=== PATIENT | female | born 1945 | race Caucasian/White ===

== ENCOUNTER 2023-08-24 14:20 | Inpatient (IN) | payer MEDICARE, OTHER, SELFPAY ==
[2023-08-24] VITALS (29 sets, daily range): BP systolic 138–197; BP diastolic 60–137; PULSE 70–93; RESP 10–23; TEMP 36.4–36.6; O2SAT 94–100; BMI 20.5
--- NOTE | 2023-08-24 14:43 | XR_ITS ---
WS: [id number] Exam: XR chest 1V portable [id number] Date/Time of Exam: 08/24/2023 2:45 PM Reason For Exam: sob No priors. The lungs are clear and hyperinflated. Normal cardiomediastinal silhouette. No pleural effusions. A p ermanent cardiac pacer overlies the LEFT chest. Unremarkable bony structures. RIGHT apical pleural th ickening. XR/XR chest 1V portable [id number] IMPRESSION: 1. Pulmonary hyperinflation. No acute process.
--- NOTE | 2023-08-24 14:49 | ECG_ITS ---
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 Measurements Intervals [place] Rate: 78 P: 94 NE: 259 QRS: 34 QRSD: 73 T: 44 QT: 366 QTc: 418 Interpretive Statements ELECTRONIC ATRIAL PACEMAKER ABNORMAL RHYTHM ECG No previous ECG available for comparison Electronically Signed On 08-25-2023 23:41:26 CDT by Dimas Matute M.D. [email or web address] medical [email or web address] memorial [email or web address].Ropatec/store/NU/[id number]
--- NOTE | 2023-08-24 15:29 | PC.NURSE ---
Pt on bedside diagnostic cardiac sonographer
--- NOTE | 2023-08-24 15:30 | CTR_ITS ---
PROCEDURE INFORMATION: Exam: CT Head Without Contrast Exam date and time: 08/24/2023 4:08 PM Age: 78 years old Clinical indication: Pain; Dizziness and weakness, extremity; Bilateral; Headache; Patient HX: Patient says she fell 3 weeks ago with loc, PT has a HX of migraines; Additional info: ESPINOZA TECHNIQUE: Imaging protocol: Computed tomography of the head without contrast. Radiation optimization: All CT scans at this facility use at least one of these dose optimization techniques: automated exposure control; mA and/or kV adjustment per patient size (includes targeted exams where dose is matched to clinical indication); or iterative reconstruction. COMPARISON: No relevant prior studies available. RADIATION DOSE METRICS: Total DLP (mGy-cm): 974 FINDINGS: Brain: There is no acute intracranial hemorrhage, cerebral edema, or midline shift. A small area of chronic encephalomalacia is present in the left parietal lobe. Chronic microvascular ischemic changes are seen in the periventricular white matter. Age-related cerebral and cerebellar volume loss is present. Cerebral ventricles: Mild ex vacuo dilation of the lateral ventricles is noted. Paranasal sinuses: There is no acute sinusitis. Mastoid air cells: The mastoid air cells are clear. Orbital cavities: The included orbital structures are unremarkable. Bones: Unremarkable. No acute fracture. Soft tissues: Unremarkable. Vasculature: Atherosclerotic calcifications are seen involving the cavernous carotid arteries. CT/CT head wo con* [id number] IMPRESSION: 1. No acute intracranial abnormality. 2. Chronic findings as discussed above.
--- NOTE | 2023-08-24 15:31 | ED_ITS ---
HPI - General Adult 2 General: Chief complaint: General Medical Stated complaint: sob, weakness Time Seen by Provider: 08/24/23 15:22 Source: patient Mode of arrival: ambulatory Limitations: no limitations History of Present Illness: 6-year-old female is here with multiple complaints she states she is diagnosed a UTI a week ago she is on her last day of her antibiotics but states she has been having headaches along with some shortness of breath she states she is just felt not like herself had some intermittent confusion along with some intermittent difficulty walking. Patient is answering my questions appropriately family states she may have some early onset dementia. Patient was able to ambulate to the room without any difficulty Associated symptoms: Reports chest pain, confusion and headache(s); Deny nausea, rash or vomiting Review of Systems 2 Const: Denies: fever(s), chills, body aches or change in appetite Eyes: Denies: blurry vision or eye discomfort ENMT: Denies: throat pain or dental pain Card: Reports: chest pain GI: Denies: abdominal pain, nausea, vomiting or diarrhea Musc: Denies: neck pain or back pain Skin/Breast: Denies: rash Neuro: Reports: headache(s), weakness in extremities and confusion PFSH ED 2 PFSH: Medical History Depression HTN (hypertension) Hyperlipidemia Pacemaker Physical Exam 2 Const: COMMON NORMALS: patient oriented x3 HENMT: COMMON NORMALS: normocephalic and atraumatic HEAD & SCALP: n ormocephalic and atraumatic Eye: COMMON NORMALS: Equal, round and reactive pupils present and EOMs intact bilaterally PUPIL: Yes Equal, round and reactive pupils present Neck/C-Spine: COMMON NORMALS: full ROM and supple Chest: COMMONS NORMALS: normal inspection of the chest Resp: COMMON NORMALS: normal respiratory effort, No retractions, No use of accessory muscles and clear to auscultation bilaterally AUSCULTATION: clear to auscultation bilaterally Cardio: COMMON NORMALS: regular rate, regular rhythm and No murmurs present (Cardio) RATE: regular rate RHYTHM: regular rhythm Extremity: COMMON NORMALS: normal to inspection and full ROM Neuro: COMMON NORMALS: patient oriented x3, moves all extremities and no focal motor deficits CRANIAL NERVES: Yes CN normal except as noted SPEECH: s peech normal GAIT: Yes Normal gait present MOTOR EXAM: 5/5 motor strength present throughout Psych: COMMON NORMALS: mental status grossly normal, Normal thought process present and cooperative THOUGHT PROCESS: Normal thought process present Skin: COMMON NORMALS: no rashes or lesions noted and no wounds GENERAL SKIN EXAM: no rashes or lesions noted Course 2 Vital Signs: Vital signs: Vital Signs Temperature 97.5 F L 08/24/23 14:39 Pulse Rate 81 08/24/23 15:33 Respiratory Rate 16 08/24/23 15:33 Blood Pressure 197/92 08/24/23 15:33 Pulse Oximetry 100 08/24/23 15:33 Oxygen Delivery Me thod Room Air 08/24/23 15:33 MDM - General Adult Medical Decision Making Patient presents for some generalized weakness confusion she was found to be hyponatremic with sodium 119 this could be causing her symptoms head CT is normal no signs of a stroke spoke to the hospitalist will admit. Medical Records I reviewed the patient's medical records. Lab Data I reviewed the patient's lab results. 08/24/23 15:17 08/24/23 15:17 Radiology Impressions Chest X-Ray 08/24/23 14:43 IMPRESSION: 1. Pulmonary hyperinflation. No acute process. Head CT 08/24/23 15:30 IMPRESSION: 1. No acute intracranial abnormality. 2. Chronic findings as discussed above. Laboratory Results WBC 5.07 10^3/uL (3.29-11.43) 08/24/23 15:17 RBC 3.58 10^6/uL (3.85-5.65) L 08/24/23 15:17 Hgb 10.90 g/dL (11.27-16.99) L 08/24/23 15:17 Hct 31.1 % (36-47) L 08/24/23 15:17 MCV 86.9 fl (85-98) 08/24/23 15:17 MCH 30.4 pg (27-33) 08/24/23 15:17 MCHC 35.0 g/dL (30-55) 08/24/23 15:17 RDW 12.4 % (12.1-15.1) 08/24/23 15:17 Plt Count 254 10^3/cmm (157-399) 08/24/23 15:17 MPV 8.5 fL (7.4-10.4) 08/24/23 15:17 Neut % (Auto) 63.5 % 08/24/23 15:17 Lymph % (Auto) 25.0 % 08/24/23 15:17 [place] % (Auto) 10.3 % 08/24/23 15:17 Eos % (Auto) 0.6 % 08/24/23 15:17 Baso % (Auto) 0.2 % 08/24/23 15:17 Neut # (Auto) 3.22 10^3/uL (1.8-7.7) 08/24/23 15:17 Lymph # (Auto) 1.3 10^3/uL (0.8-4.8) 08/24/23 15:17 [place] # (Auto) 0.5 10^3/uL (0.2-0.9) 08/24/23 15:17 Eos # (Auto) 0.0 10^3/uL (0.0-0.8) 08/24/23 15:17 Baso # (Auto) 0.0 10^3/uL (0.0-0.1) 08/24/23 15:17 Nucleated RBC % (auto) 0 % 08/24/23 15:17 Nucleated RBCs # 0.0 /100WBC 08/24/23 15:17 PT 11.90 SECONDS (12.1-14.9) L 08/24/23 15:17 INR 0.85 (0.8-1.2) 08/24/23 15:17 Sodium 119 mmol/L (136-145) L* 08/24/23 15:17 Potassium 3.3 mmol/L (3.5-5.1) L 08/24/23 15:17 Chloride 78 mmol/L (98-107) L 08/24/23 15:17 Carbon Dioxide 26 mmol/L (22-29) 08/24/23 15:17 Anion Gap 18.3 (5-19) 08/24/23 15:17 BUN 10 mg/dL (8-23) 08/24/23 15:17 Creatinine 1.2 mg/dL (0.5-0.9) H 08/24/23 15:17 GFR Calculation Not Reportable 08/24/23 15:17 Glucose 91 mg/dL (65-115) 08/24/23 15:17 Calculated Osmolality 247 mOsm/kg (285-295) L 08/24/23 15:17 Calcium 9.7 mg/dL (8.5-10.5) 08/24/23 15:17 Magnesium 1.6 mg/dL (1.7-2.3) L 08/24/23 15:17 Total Bilirubin 0.7 mg/dL (0.15-1.2) 08/24/23 15:17 AST 35 U/L (0-32) H 08/24/23 15:17 ALT 26 U/L (0-33) 08/24/23 15:17 Alkaline Phosphatase 79 U/L (35-105) 08/24/23 15:17 Troponin T Baseline 15 ng/L (0-10) H 08/24/23 15:22 NT-Pro-B Natriuret Pep 1182 pg/mL (0-450) H 08/24/23 15:17 Total Protein 7.2 g/dL (6.6-8.7) 08/24/23 15:17 Albumin 4.2 g/dL (3.5-5.2) 08/24/23 15:17 Globulin 3.0 g/dL (1.3-4.6) 08/24/23 15:17 Urine Color Yellow (Yellow) 08/24/23 15:40 Urine Appearance Clear (CLEAR) 08/24/23 15:40 Urine pH 7 (5-7) 08/24/23 15:40 Ur Specific [place] 1.010 (1.005-1.030) 08/24/23 15:40 Urine Protein Neg (Negative) 08/24/23 15:40 Urine Glucose (UA) Norm (Normal) 08/24/23 15:40 Urine Ketones 1+ (Negative) H 08/24/23 15:40 Urine Blood Neg (Negative) 08/24/23 15:40 Urine Nitrate Negative (Negative) 08/24/23 15:40 Urine Bilirubin Neg (Negative) 08/24/23 15:40 Urine Urobilinogen Norm mg/dL (Negative) 08/24/23 15:40 Ur Leukocyte Esterase 1+ (Negative) H 08/24/23 15:40 Urine RBC 0-4 /hpf (0-2) H 08/24/23 15:40 Urine WBC 0-4 /hpf (0-5) H 08/24/23 15:40 Ur Squamous Epith Cells None /hpf (0-5) 08/24/23 15:40 Amorphous Sediment Not Reportable 08/24/23 15:40 Urine Bacteria Trace /hpf (NONE) 08/24/23 15:40 All radiology interpretation(s) finalized by discharge Discharge Plan Discharge Patient Disposition: Admitted As Inpatient Clinical Impression: Acute hyponatremia, Generalized weakness Condition: Stable Prescriptions: No Action aspirin [Adult Aspirin Regimen] 81 mg tablet,delayed release (DR/EC) 81 mg PO DAILY cholecalciferol (vitamin D3) 125 mcg (5,000 unit) capsule 125 mcg PO DAILY clonidine HCl 0.1 mg tablet 0.05 mg PO BID PRN hydrochlorothiazide 25 mg tablet 25 mg PO DAILY mecobalamin (vitamin B12) 1,000 mcg tablet,disintegrating 1,000 mcg sublingual DAILY Rx Instructions: place tablet under tongue and allow to dissolve for at least30 secs before swallowing hydralazine 10 mg tablet 10 mg PO TID lisinopril 40 mg tablet 40 mg PO DAILY fluoxetine [Prozac] 40 mg capsule 40 mg PO DAILY atorvastatin 40 mg tablet 40 mg PO DAILY ferrous sulfate 325 mg (65 mg iron) tablet 325 mg PO DAILY mupirocin 2 % ointment 1 applic topical BID Qty: 22 1RF Rx Instructions: Apply to affected area until healed fluorouracil 5 % cream 1 applic topical BID 28 Days Qty: 40 3RF Rx Instructions: to nose. will cause skin irritation. Coding Level of Care Code ED Supervisor [employer] for Ines Harris
[2023-08-24 15:34] LABS: Basophils % 0.2 %; Eosinophils % 0.6 %; Hematocrit 31.1 % (36-47); Lymphocytes # 1.3 10^3/uL (0.8-4.8); Mean Corpuscular Hemoglobin 30.4 pg (27-33); Mean Corpuscular Volume 86.9 fl (85-98); Mean Platelet Volume 8.5 fL (7.4-10.4); Monocytes # 0.5 10^3/uL (0.2-0.9); Monocytes % 10.3 %; Neutrophils # 3.22 10^3/uL (1.8-7.7); Neutrophils % 63.5 %; Nucleated Red Blood Cells % 0 %; Platelet Count 254 10^3/cmm (157-399); Red Blood Count 3.58 10^6/uL (3.85-5.65); Red Cell Distribution Width 12.4 % (12.1-15.1); White Blood Count 5.07 10^3/uL (3.29-11.43)
[2023-08-24] MEDS: meclizine 25 mg tablet 50 MG PO (15:44)
[2023-08-24 16:00] LABS: Troponin(5th) Baseline 15 ng/L (0-10)
[2023-08-24 16:04] LABS: Alanine Aminotransferase 26 U/L (0-33); Albumin Level 4.2 g/dL (3.5-5.2); Alkaline Phosphatase 79 U/L (35-105); Anion Gap 18.3 (5-19); Aspartate Amino Transferase 35 U/L (0-32); Blood Urea Nitrogen 10 mg/dL (8-23); Calcium 9.7 mg/dL (8.5-10.5); Carbon Dioxide 26 mmol/L (22-29); Chloride 78 mmol/L (98-107); Glucose 91 mg/dL (65-115); NT Pro B Type Natriuretic Pept 1182 pg/mL (0-450); Osmolality Calculated 247 mOsm/kg (285-295); Potassium 3.3 mmol/L (3.5-5.1); Total Bilirubin 0.7 mg/dL (0.15-1.2); Total Protein 7.2 g/dL (6.6-8.7)
[2023-08-24 16:05] LABS: INR 0.85 (0.8-1.2)
--- NOTE | 2023-08-24 16:06 | PC.NURSE ---
to CT scan
[2023-08-24 16:07] LABS: Sodium 119 mmol/L (136-145)
[2023-08-24 16:14] LABS: Add Urine Microscopic? YES; Bilirubin Urine Neg (Negative); Blood Urine Neg (Negative); Glucose Urine UA Norm (Normal); Ketones Urine 1+ (Negative); Leukocyte Esterase Urine 1+ (Negative); Nitrate Urine Negative (Negative); Protein Urine Neg (Negative); Urine Appearance Clear (CLEAR); Urine Color Yellow (Yellow); Urobilinogen Urine Norm (Negative); pH Urine 7 (5-7)
[2023-08-24 16:16] LABS: WBC Urine 0-4 /hpf (0-5)
[2023-08-24 16:17] LABS: Add Urine Culture? No; Bacteria Urine TRACE /hpf
[2023-08-24 16:20] LABS: RBC Urine 0-4 /hpf (0-2)
[2023-08-24] MEDS: sodium chloride 0.9% 1,000 ML 999 ML IV (16:28)
[2023-08-24 16:37] LABS: Magnesium 1.6 mg/dL (1.7-2.3)
[2023-08-24] MEDS: magnesium sulfate premix 1 GM/100 ML PIGGYBACK IV (16:55)
[2023-08-24] MEDS: hyDRALAzine 20 mg/mL INJ 1 mL 10 MG IVP (17:15)
[2023-08-24 17:22] LABS: Troponin 5 2HR 14.55 ng/L (0-10)
[2023-08-24 17:24] LABS: Troponin 5 2HR Delta -0.45 ABS# (0-10)
--- NOTE | 2023-08-24 17:30 | ECG_ITS ---
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 Measurements Intervals [place] Rate: 85 P: -72 DE: 227 QRS: 88 QRSD: 154 T: -64 QT: 406 QTc: 483 Interpretive Statements ELECTRONIC ATRIAL PACEMAKER ELECTRONIC VENTRICULAR PACEMAKER ABNORMAL RHYTHM ECG Compared to ECG 08/24/2023 14:49:29 No significant changes Heavy artifacts:. Need to repeat the study Electronically Signed On 08-25-2023 23:51:43 CDT by Dimas Matute M.D. [id number]
--- NOTE | 2023-08-24 18:11 | P.HP_ITS ---
Providers/Chief Complaint 2 Chief Complaint: sob, weakness History of Present Illness Sixto Chang is a pleasant 78 year old lady coming in to ED because she has not been feeling right for the last several days, and the worst of it was today, so she decided to come in for evaluation. She has been treated for urinary tract infection with nitrofurantoin and has 1 day remaining in the course. She denies any burning or urinary symptoms. She has noticed she has not been like herself cognitively, forgetful, with poor appetite, as well as difficulty walking. In ER her sodium is 119. She does not exactly remember her medications, she seems to remember taking HCTZ. Her appetite has not been good in the last several days. She has been drinking up to 4 bottles of water daily, she feels she needed to stay hydrated although it was not significantly thirsty. Review of Systems 2 Const: Denies: fever(s), chills or body aches Eyes: Denies: change in vision, eye discomfort or eye redness ENMT: Denies: throat pain, oral sores or ear or mastoid pain Card: Denies: chest pain, edema, pre-syncope or dyspnea on exertion Resp: Denies: dyspnea, productive cough, change in phlegm color or hemoptysis GI: Denies: abdominal pain, nausea, vomiting, diarrhea, constipation, hematochezia or melena : Denies: flank pain, urinary frequency or hematuria Musc: Denies: back pain, joint swelling or joint redness Skin/Breast: Denies: rash or new lesions Neuro: Reports: difficulty walking and confusion Endo: Denies: polydipsia Medications/Allergies Home Medications Medication Instructions Recorded Confirmed Last Taken Type aspirin 81 mg tablet,delayed 81 mg PO DAILY 11/26/20 03/18/21 Unknown History release (Adult Aspirin Regimen) atorvastatin 40 mg tablet 40 mg PO DAILY 11/26/20 03/18/21 Unknown History cholecalciferol (vitamin D3) 125 125 mcg PO DAILY 11/26/20 03/18/21 Unknown History mcg (5,000 unit) capsule clonidine HCl 0.1 mg tablet 0.05 mg PO BID PRN 11/26/20 03/18/21 Unknown History ferrous sulfate 325 mg (65 mg 325 mg PO DAILY 11/26/20 03/18/21 Unknown History iron) tablet fluoxetine 40 mg capsule (Prozac) 40 mg PO DAILY 11/26/20 03/18/21 Unknown History hydralazine 10 mg tablet 10 mg PO TID 11/26/20 03/18/21 Unknown History hydrochlorothiazide 25 mg tablet 25 mg PO DAILY 11/26/20 03/18/21 Unknown History lisinopril 40 mg tablet 40 mg PO DAILY 11/26/20 03/18/21 Unknown History mecobalamin (vitamin B12) 1,000 1,000 mcg sublingual DAILY 11/26/20 03/18/21 Unknown History mcg disintegrating tablet,sublingual mupirocin 2 % topical ointment 1 applic topical BID #22 grams 02/06/21 03/18/21 Unknown Rx fluorouracil 5 % topical cream 1 applic topical BID 4 weeks #40 03/18/21 03/18/21 Unknown Rx grams Allergies Allergy/AdvReac Type Severity Reaction Status Date / Time No Known Allergies Allergy Verified 03/18/21 14:00 PFSH Acute 2 PFSH: Medical History Depression HTN (hypertension) Hyperlipidemia Pacemaker Social History (Updated 08/24/23 @ 18:19 by Josep Staples MD) Smoking and tobacco/nicotine status: never used tobacco/nicotine Alcohol intake: never Lives independently: Yes Household members: none Vitals/I&O/Wt Last Vital Signs Temp 97.5 F L 08/24/23 14:39 Pulse 89 08/24/23 17:30 Resp 16 08/24/23 17:30 BP 174/99 08/24/23 17:30 Pulse Ox 99 08/24/23 17:30 O2 Del Method Room Air 08/24/23 17:30 08/24/23 08/24/23 08/24/23 06:59 14:59 22:59 Intake Total 1100 / 1100 Balance 1100 / 1100 Weight last 48 hrs Weight 49.442 kg Physical Exam 2 Narrative: Not a good historian. Const: COMMON NORMALS: patient oriented x3 and alert GENERAL APPEARANCE: c ooperative ORIENTATION/CONSCIOUSNESS: Yes awake HENMT: COMMON NORMALS: oropharynx normal Neck/C-Spine: COMMON NORMALS: no JVD Resp: COMMON NORMALS: normal respiratory effort and clear to auscultation bilaterally AUSCULTATION: clear to auscultation bilaterally Cardio: COMMON NORMALS: no JVD, regular rhythm, S1 normal heart sound present, S2 normal heart sound present and No murmurs present (Cardio) RHYTHM: regular rhythm HEART SOUNDS: S1 normal heart sound present and S2 normal heart sound present GI: COMMON NORMALS: Normal to inspection, nondistended, normoactive bowel sounds present, Soft to palpation and non-tender PALPATION: Yes Soft to palpation Extremity: COMMON NORMALS: no joint enlargement and no pedal edema Neuro: COMMON NORMALS: patient oriented x3 and moves all extremities S ENSORIUM/ORIENTATION: Yes alert Skin: COMMON NORMALS: no rashes or lesions noted GENERAL SKIN EXAM: no rashes or lesions noted Data 08/24/23 15:17 08/24/23 15:17 A&P Assessment and plan (1) Acute hyponatremia: Severe Hyponatremia, duration not entirely known, could be chronic. Complicated by acute encephalopathy, generalized weakness, difficulty walking. Poor appetite. Reviewed vitals, CBC, CMP, magnesium, troponin, ER provider note, discussed with ER provider. Etiology not entirely clear but she appears to be on HCTZ at home, recently also with poor appetite in the last several days. Has been on nitrofurantoin for UTI. Has 1 day remaining. Denies urinary symptoms. Has had lower oral intake and also has been drinking water up to 4 bottles a day because she was worried that she was going to get dehydrated. Possibly combination secondary to HCTZ, low solute intake. Has received IV bolus. Hold off additional IV fluids. Recheck sodium. Discussed with her goals of slow sodium increase, risk with rapid increase. Discussed initial admission to intensive care unit, additional follow-up lab work for sodium levels. At risk of hyponatremia, hold off additional IV fluids for now. Recheck sodium levels. Hold HCTZ. (2) Acute encephalopathy: Acute metabolic encephalopathy with severe hyponatremia, with cholelithiasis, loss of appetite. Difficulty ambulating. Treat hyponatremia as above. (3) Generalized weakness: Treat hyponatremia, will request PT assessment. Plan Hypomagnesemia: Received magnesium. Recheck level. PAMELLA: Creatinine up to 1.3. Recently poor oral intake. Received fluid challenge. Reassess kidney function. Recent UTI: Hold of nitrofurantoin. As per discussion with her, we will complete last day of treatment with cefdinir. Attestations 2 Medical Necessity Statement*: Admission of over 2 midnights anticipated for assessment of management of severe symptomatic hyponatremia with acute encephalopathy, difficulty walking. Coding Level of Care Code Critical Care >/= 30 minutes Critical care time (in minutes): 35 The high probability of a clinically significant, sudden or life threatening deterioration, as referenced in this documentation, required my full and direct attention, intervention and personal management. The critical care time shown is in addition to time spent performing any reported separately billable procedures and includes the following: [x] Data and vital sign review and interpretation [x ] Patient assessment, examination and intervention [x] Medication orders and management [x] Patient/Family updates as able [x] Care Coordination and Documentation. Diagnoses Acute hyponatremia E87.1 Acute encephalopathy G93.40 Generalized weakness R53.1
[2023-08-24 20:14] LABS: Sodium 122 mmol/L (136-145)
[2023-08-24] MEDS: acetaminophen 325 mg Tablet 650 MG PO (20:16)
[2023-08-24] MEDS: enoxaparin 30 mg/0.3 mL Syringe SUBCUT (20:16)
[2023-08-24] MEDS: amlodipine 5 mg Tablet 10 MG PO (20:44)
[2023-08-24] MEDS: sodium chloride 1 gm Tablet 0.5 GM PO (20:44)
[2023-08-24 20:58] LABS: SARS Covid-2 Antigen negative (Negative)
[2023-08-24 20:59] LABS: Influenza A by IFA negative (Negative); Influenza B by IFA negative (Negative)
--- NOTE | 2023-08-24 21:42 | PC.NURSE ---
HTN: Patient's BP had sustained in the 170s-180s systolic, Dr. Baltazar was contacted and gave telephone orders for 10mg amlodipine PO ONCE and to recheck BP in one hour. Delaney gave parameters of a BP above 160 systolic before we treat.
--- NOTE | 2023-08-24 21:59 | ECG_ITS ---
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 Measurements Intervals [place] Rate: 70 P: 240 AR: 267 QRS: 19 QRSD: 86 T: 24 QT: 416 QTc: 450 Interpretive Statements ELECTRONIC ATRIAL PACEMAKER SEPTAL MYOCARDIAL INFARCTION , OF INDETERMINATE AGE [40+ ms Q WAVE IN V1/V2] Compared to ECG 08/24/2023 17:14:07 Myocardial infarct finding now present Ventricular-paced complex(es) or rhythm no longer present Electronically Signed On 08-25-2023 23:53:55 CDT by Dimas Matute M.D. [id number]
[2023-08-24 22:25] LABS: Troponin 5 6HR 18.05 ng/L (0-10); Troponin 5 6HR Delta 3.05 ng/L (0-12)
--- NOTE | 2023-08-24 22:47 | ECG_ITS ---
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 Measurements Intervals [place] Rate: 76 P: 132 AR: 268 QRS: 20 QRSD: 86 T: 22 QT: 416 QTc: 468 Interpretive Statements ELECTRONIC ATRIAL PACEMAKER ABNORMAL RHYTHM ECG Compared to ECG 08/24/2023 21:59:01 Myocardial infarct finding no longer present Electronically Signed On 08-25-2023 23:54:11 CDT by Dimas Matute M.D. [id number]
[2023-08-25] VITALS (39 sets, daily range): BP systolic 115–176; BP diastolic 49–96; PULSE 70–87; RESP 13–27; TEMP 36.6–36.9; O2SAT 91–98; BMI 20.7
[2023-08-25 00:12] LABS: Sodium 124 mmol/L (136-145)
[2023-08-25 05:39] LABS: Anion Gap 15.2 (5-19); Blood Urea Nitrogen 8 mg/dL (8-23); Calcium 9.4 mg/dL (8.5-10.5); Carbon Dioxide 27 mmol/L (22-29); Chloride 87 mmol/L (98-107); Creatinine Clr Calc Pharmacy 34.3797; Glucose 83 mg/dL (65-115); Magnesium 1.8 mg/dL (1.7-2.3); Osmolality Calculated 259 mOsm/kg (285-295); Potassium 3.2 mmol/L (3.5-5.1); Sodium 126 mmol/L (136-145)
[2023-08-25] MEDS: sodium chloride 1 gm Tablet 0.5 GM PO ×2 (08:26→17:40)
[2023-08-25] MEDS: ferrous sulfate EC 325 mg Tablet PO (10:01)
[2023-08-25] MEDS: aspirin 81 mg EC Tablet PO (10:02)
--- NOTE | 2023-08-25 11:43 | PC.NURSE ---
1140 Orders to transfer Med surg, report called, and will let her eat lunch here then will move to 253-2.
--- NOTE | 2023-08-25 12:52 | PC.NURSE ---
1245 Patient ate lunch well. Transfered to [facility] with phone, flight attendant, wallet and all belongings. No c/o's. Placed in bed with call light in reach.
[2023-08-25] MEDS: cefdinir 300 MG CAPSULE PO ×2 (13:51→17:39)
[2023-08-25 14:29] LABS: Sodium 127 mmol/L (136-145)
[2023-08-25] MEDS: BuSPIRONE 10 mg Tablet 5 MG PO ×2 (15:36→20:06)
[2023-08-25] MEDS: enoxaparin 30 mg/0.3 mL Syringe SUBCUT (20:06)
--- NOTE | 2023-08-25 20:28 | P.PN_ITS ---
Subjective 2 Subjective: She states she feels that it is hard to tell if she is doing better, however, she did notice she was walking better with physical therapy today. Vitals/I&O/Wt Last Vital Signs Temp 98.5 F 08/25/23 19:52 Pulse 70 08/25/23 19:52 Resp 18 08/25/23 19:52 BP 135/56 08/25/23 19:52 Pulse Ox 96 08/25/23 19:52 O2 Del Method Room Air 08/25/23 16:00 08/25/23 08/25/23 08/25/23 06:59 14:59 22:59 Intake Total 480 / 480 Balance 480 / 480 Weight last 48 hrs Weight 49.64 kg Weight 49.215 kg Weight 49.442 kg Physical Exam 2 Const: COMMON NORMALS: patient oriented x3 and alert GENERAL APPEARANCE: c ooperative ORIENTATION/CONSCIOUSNESS: Yes awake HENMT: COMMON NORMALS: oropharynx normal Neck/C-Spine: COMMON NORMALS: no JVD Resp: COMMON NORMALS: normal respiratory effort and clear to auscultation bilaterally AUSCULTATION: clear to auscultation bilaterally Cardio: COMMON NORMALS: no JVD, regular rhythm, S1 normal heart sound present, S2 normal heart sound present and No murmurs present (Cardio) RHYTHM: regular rhythm HEART SOUNDS: S1 normal heart sound present and S2 normal heart sound present GI: COMMON NORMALS: Normal to inspection, nondistended, normoactive bowel sounds present, Soft to palpation and non-tender PALPATION: Yes Soft to palpation Extremity: COMMON NORMALS: no joint enlargement and no pedal edema Neuro: COMMON NORMALS: patient oriented x3 and moves all extremities S ENSORIUM/ORIENTATION: Yes alert Skin: COMMON NORMALS: no rashes or lesions noted GENERAL SKIN EXAM: no rashes or lesions noted Data 08/24/23 15:17 08/25/23 14:02 A&P Assessment and plan (1) Acute hyponatremia: Reviewed vitals, BMP, magnesium, troponin, sodium is gradually improving. Up to 1.7. Continue regular diet, also added sodium chloride tablets 0.5 g twice daily. Continue. Reassess sodium. Monitor for risk of overly rapid rise. Risk of ODS. So far a good gradual rise. Hold HCTZ. Additionally on review of her medications she is on fluoxetine at home, restarted at a lower dose due to risk of hyponatremia, follow-up sodium. 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 Possibly combination secondary to HCTZ, low solute intake. Has received IV bolus. Hold off additional IV fluids. Recheck sodium. Discussed with her goals of slow sodium increase, risk with rapid increase. Discussed initial admission to intensive care unit, additional follow-up lab work for sodium levels. At risk of hyponatremia, hold off additional IV fluids for now. Recheck sodium levels. Hold HCTZ. (2) Acute encephalopathy: Improving. Acute metabolic encephalopathy with severe hyponatremia, with cholelithiasis, loss of appetite. Difficulty ambulating. Treat hyponatremia as above. (3) Generalized weakness: Treat hyponatremia, will request PT assessment. Plan Hypokalemia: Replace. Recheck potassium. Replace magnesium. Hypomagnesemia: Reviewed magnesium, recheck level PAMELLA: Creatinine on review is better today down to 1. Recently poor oral intake. Received fluid challenge. Reassess kidney function. Recent UTI: Hold of nitrofurantoin. As per discussion with her, we will complete last day of treatment with cefdinir. Attestations 2 Medical Necessity Statement*: Continue admission for assessment management of gradually improving severe symptomatic hyponatremia. and High MDM includes amount and/or complexity of data reviewed/ordered [ resulted lab(s)/test(s), ordered lab(s)/test(s) and other healthcare professional discussion] and described risk of complication, morbidity or mortality of management as documented Diagnoses Acute hyponatremia E87.1 Acute encephalopathy G93.40 Generalized weakness R53.1
[2023-08-25] MEDS: potassium chloride ER 20 mEq Tablet PO (20:54)
[2023-08-25] MEDS: magnesium sulfate premix 1 GM/100 ML PIGGYBACK IV (21:10)
[2023-08-26] VITALS: BP 151/72; PULSE 89; RESP 18; TEMP 36.9; O2SAT 98
[2023-08-26 04:00] VITALS: BP 122/69; PULSE 66; RESP 18; TEMP 36.9; O2SAT 95
[2023-08-26 05:33] LABS: Blood Urea Nitrogen 13 mg/dL (8-23); Calcium 8.8 mg/dL (8.5-10.5); Carbon Dioxide 28 mmol/L (22-29); Chloride 93 mmol/L (98-107); Glucose 82 mg/dL (65-115); Osmolality Calculated 269 mOsm/kg (285-295); Sodium 130 mmol/L (136-145)
[2023-08-26 05:36] LABS: Anion Gap 12.6 (5-19); Creatinine Clr Calc Pharmacy 31.9742; Potassium 3.6 mmol/L (3.5-5.1)
[2023-08-26 07:33] VITALS: BP 169/68; PULSE 82; RESP 14; TEMP 36.9; O2SAT 98
[2023-08-26] MEDS: BuSPIRONE 10 mg Tablet 5 MG PO (08:03)
[2023-08-26] MEDS: aspirin 81 mg EC Tablet PO (08:03)
[2023-08-26] MEDS: lisinopril 20 mg Tablet 40 MG PO (08:03)
[2023-08-26] MEDS: ferrous sulfate EC 325 mg Tablet PO (08:03)
[2023-08-26] MEDS: sodium chloride 1 gm Tablet 0.5 GM PO (08:03)
[2023-08-26] MEDS: dilTIAZem ER (24HR) 120 mg Capsule PO (08:03)
[2023-08-26] MEDS: fluoxetine 20 mg Capsule PO (08:03)
--- NOTE | 2023-08-26 10:44 | PM.DCS ---
Discharge Providers Date of Admission: 08/24/23 18:12 Date of Discharge: August 26, 2023 Attending Provider at Admission: Josep Staples Attending Provider at Discharge: Josep Staples Diagnoses at Discharge Discharge Diagnosis (1) Acute hyponatremia: Status: Acute (2) Acute encephalopathy: Status: Acute (3) Generalized weakness: Status: Acute Reason for Visit Reason for Visit: sob, weakness Brief History: Sixto Chang is a pleasant 78 year old lady coming in to ED because she has not been feeling right for the last several days, and the worst of it was today, so she decided to come in for evaluation. She has been treated for urinary tract infection with nitrofurantoin and has 1 day remaining in the course. She denies any burning or urinary symptoms. She has noticed she has not been like herself cognitively, forgetful, with poor appetite, as well as difficulty walking. In ER her sodium is 119. She does not exactly remember her medications, she seems to remember taking HCTZ. Her appetite has not been good in the last several days. She has been drinking up to 4 bottles of water daily, she feels she needed to stay hydrated although it was not significantly thirsty. Hospital Course Hospital Course Received a fluid bolus of her incision, subsequently continued on sodium chloride tablets, regular diet, HCTZ was stopped, fluoxetine dose was reduced, she was instructed to avoid excessive water consumption, drink when she is thirsty, but avoid drinking multiple water bottles on purpose. Her sodium gradually improved, today is 130. She worked with physical therapy and is doing much better in terms of walking. She was deemed to do well returning home with home exercise program. Cognitive concerns have resolved. She will continue with regular diet, sodium chloride tablets for the next week. Instructed to avoid excess water consumption. HCTZ discontinued. Fluoxetine is resumed. Please recheck sodium. Mild PAMELLA with improvement, creatinine 1.1, BUN 13. Please reassess renal function. Due to discontinuation of HCTZ with blood pressure benefiting from further improvement she was additionally started on hydralazine, continued on diltiazem, lisinopril. Please follow-up and continue to optimize blood pressure control. She received magnesium replacement due to mildly decreased magnesium level, please reassess. During hospitalization completed antibiotic course for recent UTI with cefdinir. Physical Exam Narrative: Not a good historian. Const: COMMON NORMALS: patient oriented x3 and alert GENERAL APPEARANCE: cooperative ORIENTATION/CONSCIOUSNESS: Yes awake HENMT: COMMON NORMALS: oropharynx normal Neck/C-Spine: COMMON NORMALS: no JVD Resp: COMMON NORMALS: normal respiratory effort and clear to auscultation bilaterally AUSCULTATION: clear to auscultation bilaterally Cardio: COMMON NORMALS: no JVD, regular rhythm, S1 normal heart sound present, S2 normal heart sound present and No murmurs present (Cardio) RHYTHM: regular rhythm HEART SOUNDS: S1 normal heart sound present and S2 normal heart sound present GI: COMMON NORMALS: Normal to inspection, nondistended, normoactive bowel sounds present, Soft to palpation and non-tender PALPATION: Yes Soft to palpation Extremity: COMMON NORMALS: no joint enlargement and no pedal edema Neuro: COMMON NORMALS: patient oriented x3 and moves all extremities SENSORIUM/ORIENTATION: Yes alert Skin: COMMON NORMALS: no rashes or lesions noted GENERAL SKIN EXAM: no rashes or lesions noted Discharge Data Studies Completed and Pending Completed Studies During Hospitalization Category Date Time Status CT head wo con* [id number] Stat Cat Scan 08/24/23 15:30 Completed XR chest 1V portable [id number] Stat Exams 08/24/23 14:43 Completed Pending at discharge Category Date Time Status Basic Metabolic Panel AM LABS Lab 08/27/23 04:00 Ordered Radiology Impressions Chest X-Ray 08/24/23 14:43 IMPRESSION: 1. Pulmonary hyperinflation. No acute process. Head CT 08/24/23 15:30 IMPRESSION: 1. No acute intracranial abnormality. 2. Chronic findings as discussed above. Laboratory Results WBC 5.07 10^3/uL (3.29-11.43) 08/24/23 15:17 RBC 3.58 10^6/uL (3.85-5.65) L 08/24/23 15:17 Hgb 10.90 g/dL (11.27-16.99) L 08/24/23 15:17 Hct 31.1 % (36-47) L 08/24/23 15:17 MCV 86.9 fl (85-98) 08/24/23 15:17 MCH 30.4 pg (27-33) 08/24/23 15:17 MCHC 35.0 g/dL (30-55) 08/24/23 15:17 RDW 12.4 % (12.1-15.1) 08/24/23 15:17 Plt Count 254 10^3/cmm (157-399) 08/24/23 15:17 MPV 8.5 fL (7.4-10.4) 08/24/23 15:17 Neut % (Auto) 63.5 % 08/24/23 15:17 Lymph % (Auto) 25.0 % 08/24/23 15:17 [place] % (Auto) 10.3 % 08/24/23 15:17 Eos % (Auto) 0.6 % 08/24/23 15:17 Baso % (Auto) 0.2 % 08/24/23 15:17 Neut # (Auto) 3.22 10^3/uL (1.8-7.7) 08/24/23 15:17 Lymph # (Auto) 1.3 10^3/uL (0.8-4.8) 08/24/23 15:17 [place] # (Auto) 0.5 10^3/uL (0.2-0.9) 08/24/23 15:17 Eos # (Auto) 0.0 10^3/uL (0.0-0.8) 08/24/23 15:17 Baso # (Auto) 0.0 10^3/uL (0.0-0.1) 08/24/23 15:17 Nucleated RBC % (auto) 0 % 08/24/23 15:17 Nucleated RBCs # 0.0 /100WBC 08/24/23 15:17 PT 11.90 SECONDS (12.1-14.9) L 08/24/23 15:17 INR 0.85 (0.8-1.2) 08/24/23 15:17 Sodium 130 mmol/L (136-145) L 08/26/23 04:22 Potassium 3.6 mmol/L (3.5-5.1) 08/26/23 04:22 Chloride 93 mmol/L (98-107) L 08/26/23 04:22 Carbon Dioxide 28 mmol/L (22-29) 08/26/23 04:22 Anion Gap 12.6 (5-19) 08/26/23 04:22 BUN 13 mg/dL (8-23) 08/26/23 04:22 Creatinine 1.1 mg/dL (0.5-0.9) H 08/26/23 04:22 GFR Calculation Not Reportable 08/26/23 04:22 Glucose 82 mg/dL (65-115) 08/26/23 04:22 Calculated Osmolality 269 mOsm/kg (285-295) L 08/26/23 04:22 Calcium 8.8 mg/dL (8.5-10.5) 08/26/23 04:22 Magnesium 2.0 mg/dL (1.7-2.3) 08/26/23 04:22 Total Bilirubin 0.7 mg/dL (0.15-1.2) 08/24/23 15:17 AST 35 U/L (0-32) H 08/24/23 15:17 ALT 26 U/L (0-33) 08/24/23 15:17 Alkaline Phosphatase 79 U/L (35-105) 08/24/23 15:17 Troponin T Baseline 15 ng/L (0-10) H 08/24/23 15:22 Troponin T 120 Minute 14.55 ng/L (0-10) H 08/24/23 17:00 Delta Troponin T -0.45 ABS# (0-10) L 08/24/23 17:00 Troponin T Hi Sens 6Hr 18.05 ng/L (0-10) H 08/24/23 21:48 Troponin T Hi Sens 6Hr Delta 3.05 ng/L (0-12) 08/24/23 21:48 NT-Pro-B Natriuret Pep 1182 pg/mL (0-450) H 08/24/23 15:17 Total Protein 7.2 g/dL (6.6-8.7) 08/24/23 15:17 Albumin 4.2 g/dL (3.5-5.2) 08/24/23 15:17 Globulin 3.0 g/dL (1.3-4.6) 08/24/23 15:17 Urine Color Yellow (Yellow) 08/24/23 15:40 Urine Appearance Clear (CLEAR) 08/24/23 15:40 Urine pH 7 (5-7) 08/24/23 15:40 Ur Specific [place] 1.010 (1.005-1.030) 08/24/23 15:40 Urine Protein Neg (Negative) 08/24/23 15:40 Urine Glucose (UA) Norm (Normal) 08/24/23 15:40 Urine Ketones 1+ (Negative) H 08/24/23 15:40 Urine Blood Neg (Negative) 08/24/23 15:40 Urine Nitrate Negative (Negative) 08/24/23 15:40 Urine Bilirubin Neg (Negative) 08/24/23 15:40 Urine Urobilinogen Norm mg/dL (Negative) 08/24/23 15:40 Ur Leukocyte Esterase 1+ (Negative) H 08/24/23 15:40 Urine RBC 0-4 /hpf (0-2) H 08/24/23 15:40 Urine WBC 0-4 /hpf (0-5) H 08/24/23 15:40 Ur Squamous Epith Cells None /hpf (0-5) 08/24/23 15:40 Amorphous Sediment Not Reportable 08/24/23 15:40 Urine Bacteria Trace /hpf (NONE) 08/24/23 15:40 Influenza Type A Ag negative (Negative) 08/24/23 20:20 Influenza Type B Ag negative (Negative) 08/24/23 20:20 SARS-CoV-2 Ag (Rapid) negative (Negative) 08/24/23 20:20 Vitals Last Vital Signs Temp 98.4 F 08/26/23 07:33 Pulse 82 08/26/23 07:33 Resp 14 08/26/23 07:33 BP 169/68 08/26/23 07:33 Pulse Ox 98 08/26/23 07:33 O2 Del Method Room Air 08/26/23 07:33 Discharge Plan Discharge Patient Disposition: Home Condition: Stable Prescriptions: New hydralazine 10 mg tablet 10 mg PO BID Qty: 90 0RF sodium chloride 1,000 mg Tablet,Soluble 500 mg PO BID Qty: 7 0RF Continued aspirin [Adult Aspirin Regimen] 81 mg tablet,delayed release (DR/EC) 81 mg PO DAILY cholecalciferol (vitamin D3) 125 mcg (5,000 unit) capsule 125 mcg PO DAILY mecobalamin (vitamin B12) 1,000 mcg tablet,disintegrating 1,000 mcg sublingual DAILY Rx Instructions: place tablet under tongue and allow to dissolve for at least30 secs before swallowing lisinopril 40 mg tablet 40 mg PO DAILY fluoxetine [Prozac] 40 mg capsule 40 mg PO DAILY ferrous sulfate 325 mg (65 mg iron) tablet 325 mg PO DAILY buspirone 5 mg tablet 5 mg PO TID atorvastatin 80 mg tablet 80 mg PO QPM DILT-XR 120 mg capsule,ext.rel 24h degradable 120 mg PO DAILY Discontinued hydrochlorothiazide 25 mg tablet 25 mg PO DAILY nitrofurantoin monohyd/m-cryst 100 mg capsule 100 mg PO BID Discharge Orders: Discharge Order (Routine); Ordered 08/26/23 Ordered By: Josep Staples Referrals: Vladislav Hernandez DO [Referring] - 08/31/23 2:00 pm (Please arrive by 1:45 to complete paperwork.) Discharge Diet: Regular Discharge Activity: As per PT/OT instructions Patient Instructions: Hydralazine (By mouth), Sodium Chloride (By mouth), Hyponatremia (GEN), Chronic Hypertension (GEN), Fall Prevention (GEN) Activity Restrictions/Additional Instructions: Please follow-up with your primary doctor due to low sodium, have them reassess your sodium level. Continue sodium chloride half a tablet twice daily for the next 7 days. Continue regular diet. If you are thirsty, drink water, but avoid drinking excess water. Stop hydrochlorothiazide as it can lower your sodium. Discuss the dose of fluoxetine with your primary provider after recheck of sodium to see if it needs to be adjusted further as it can sometimes also lower sodium levels. Monitor your blood pressures 3 times daily, write down values to bring to your appointment, or bring your machine. Target blood pressure 120/80. Since hydrochlorothiazide is discontinued you are started on hydralazine to help control blood pressures. Have your primary doctor reassess knee function after mild kidney injury. Maintain fall precautions. In case of inability to maintain oral intake, or any worsening or new concerning symptoms, seek medical attention. Discharge Attestations Time Spent in Discharge Care*: greater than 30 min Quality Metrics Clinical Quality Measures [ No reported AMI, CVA or VTE this stay] Coding Level of Care Code 71031 Total time (in minutes) for Discharge: 45 Diagnoses Acute hyponatremia E87.1 Acute encephalopathy G93.40 Generalized weakness R53.1
--- NOTE | 2023-08-26 10:45 | PC.SOCIAL ---
IMM Updated Updated pt on IMM. No questions voiced. Provided pt a copy. Initialed, dated, & timed a copy & placed in chart.
[2023-08-26 11:31] VITALS: BP 169/69; PULSE 52; RESP 16; TEMP 37.1; O2SAT 98
[2023-08-26 14:01] VITALS: BP 169/69; PULSE 52; RESP 16; TEMP 37.1; O2SAT 98
== END 2023-08-26 13:20 | disposition home or self-care (01) | DRG 640 ==
LOC: ER 17:09 → ICU 18:16 → MEDSURG 08-25 12:53
PROVIDERS: Admitting Provider Internal Medicine; Emergency Provider Emergency Medicine; Visit Provider Internal Medicine
DX: E87.1 Hypo-osmolality and hyponatremia (principal); G93.41 Metabolic encephalopathy; N17.9 Acute kidney failure, unspecified; N39.0 Urinary tract infection, site not specified; E83.42 Hypomagnesemia; E87.6 Hypokalemia; I10 Essential (primary) hypertension; F32.A Depression, unspecified; Z95.0 Presence of cardiac pacemaker; Z79.82 Long term (current) use of aspirin
CPT/HCPCS: 36415; 70450; 71045; 80048; 80053; 81001; 83735; 83880; 84295; 84484; 85025; 85610; 87426; 87804; 93005; 96365; 96372; 96374; 96375; 96376; 97110; 97116; 97161; 99285; J0360; J1650; J3475; J7030; J8597

== ENCOUNTER 2024-05-31 11:35 | Inpatient (IN) | payer MEDICARE, OTHER, SELFPAY ==
[2024-05-31] VITALS (8 sets, daily range): BP systolic 150–185; BP diastolic 75–100; PULSE 77–110; RESP 16–29; TEMP 36.4–36.9; O2SAT 78–97; BMI 18.8; BMI 18.9
--- NOTE | 2024-05-31 11:38 | XR_ITS ---
WS: [id number] XR chest 1V portable [id number] REASON FOR EXAM: sob FINDINGS: Cardiac device of the left chest with trans left subclavian vein leads to the right atrium and right ventricular apex. The heart is at the upper limits of normal in size. Calcified granulomatous disease bilaterally. Significant bilateral pleural effusions with compressive atelectasis, and reticular interstitial and groundglass lung opacities. XR/XR chest 1V portable [id number] IMPRESSION: Findings most compatible with congestive heart failure, less likely pneumonitis . Significant pleural effusions.
--- NOTE | 2024-05-31 11:58 | ECG_ITS ---
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 Measurements Intervals [place] Rate: 86 P: 0 ME: 0 QRS: 23 QRSD: 76 T: 58 QT: 384 QTc: 460 Interpretive Statements UNCERTAIN IRREGULAR RHYTHM ELECTRONIC VENTRICULAR PACEMAKER -- CONTOUR ANALYSIS BASED ON INTRINSIC RHYTHM SEPTAL MYOCARDIAL INFARCTION , OF INDETERMINATE AGE [40+ ms Q WAVE IN V1/V2] Compared to ECG 08/24/2023 22:52:47 Myocardial infarct finding now present Atrial-paced complex(es) or rhythm no longer present Electronically Signed On 06-04-2024 18:29:45 CDT by Gonsalo Cardona M.D. [email or web address]
[2024-05-31 12:19] LABS: Basophils # 0.1 10^3/uL (0.0-0.1); Eosinophils # 0.1 10^3/uL (0.0-0.8); Eosinophils % 1.4 %; Hematocrit 28.8 % (36-47); Lymphocytes # 1.2 10^3/uL (0.8-4.8); Mean Corpuscular HGB Conc 29.9 g/dL (30-55); Mean Corpuscular Hemoglobin 26.3 pg (27-33); Mean Corpuscular Volume 88.1 fl (85-98); Mean Platelet Volume 9.2 fL (7.4-10.4); Monocytes # 0.3 10^3/uL (0.2-0.9); Monocytes % 5.5 %; Neutrophils # 3.28 10^3/uL (1.8-7.7); Neutrophils % 67.5 %; Nucleated Red Blood Cells % 0 %; Platelet Count 281 10^3/cmm (157-399); Red Blood Count 3.27 10^6/uL (3.85-5.65); Red Cell Distribution Width 17.7 % (12.1-15.1); White Blood Count 4.87 10^3/uL (3.29-11.43)
[2024-05-31 12:46] LABS: Alanine Aminotransferase 9 U/L (0-33); Albumin Level 3.7 g/dL (3.5-5.2); Alkaline Phosphatase 73 U/L (35-105); Anion Gap 17.7 (5-19); Aspartate Amino Transferase 23 U/L (0-32); Blood Urea Nitrogen 13 mg/dL (8-23); Calcium 8.9 mg/dL (8.5-10.5); Carbon Dioxide 24 mmol/L (22-29); Chloride 99 mmol/L (98-107); Glucose 96 mg/dL (65-115); NT Pro B Type Natriuretic Pept 8466 pg/mL (0-450); Osmolality Calculated 284 mOsm/kg (285-295); Potassium 3.7 mmol/L (3.5-5.1); Sodium 137 mmol/L (136-145); Total Bilirubin 0.5 mg/dL (0.15-1.2); Total Protein 6.7 g/dL (6.6-8.7)
--- NOTE | 2024-05-31 12:54 | W.ED.SOB ---
HPI - SOB/Dyspnea General: Chief Complaint: Shortness of Breath/Dyspnea Stated Complaint: SOB Time Seen by Provider: 05/31/24 12:14 Source: patient and family Mode of arrival: ambulatory Limitations: no limitations History of Present Illness: HPI Narrative: Patient is a pleasant 79-year-old female who presents today with 6-month history of worsening shortness of breath-significantly worse yesterday/today. Last night patient began having two pillow orthopnea. Patient's daughter does note that patient's ankles have appeared more swollen recently reporting a sock line whereas normally they are loose on her. Patient has had a non-productive cough x a few months-no hemoptysis. She has had a 30 pound weight loss over the past 9 months, however daughter admits that this may be in part due to her dementia and forgetting to eat. Patient was a smoker from the age of 15 to around 48 years old. History of pacemaker failure, atrial fibrillation, anemia on ferrous sulfate, hypertension, recurrent bronchitis, dementia, HLD. MD elicited complaint: shortness of breath and cough Onset (ago): month(s) Timing: constant and progressively worsening Severity: moderate Exacerbating factors: lying flat and exertion Relieving factors: nothing Associated symptoms: Reports chest congestion, cough and orthopnea; Deny abdominal pain, chest pain, extremity pain, fever(s), hemoptysis, lightheadedness, nausea, palpitations, syncope or vomiting Treatment prior to arrival: none Related Data Home Medications ?Medication ?Instructions ?Recorded ?Confirmed aspirin 81 mg tablet,delayed 81 mg PO DAILY 11/26/20 05/31/24 release (Adult Aspirin Regimen) fluoxetine 40 mg capsule (Prozac) 40 mg PO DAILY 11/26/20 05/31/24 atorvastatin 80 mg tablet 80 mg PO QPM 08/25/23 05/31/24 buspirone 5 mg tablet 5 mg PO TID 08/25/23 05/31/24 diltiazem HCl 120 mg 120 mg PO DAILY 08/25/23 05/31/24 capsule,extended release 24 hr, controlled (DILT-XR) apixaban 2.5 mg tablet (Eliquis) 2.5 mg PO BID 05/31/24 05/31/24 donepezil 5 mg tablet 5 mg PO QPM 05/31/24 05/31/24 empagliflozin 10 mg tablet 10 mg PO QAM 05/31/24 05/31/24 (Jardiance) ferrous sulfate 325 mg (65 mg 325 mg PO DAILY 05/31/24 05/31/24 iron) tablet Allergies Allergy/AdvReac Type Severity Reaction Status Date / Time No Known Allergies Allergy Verified 03/18/21 14:00 Review of Systems Const: Denies: fever(s), chills, body aches, fatigue or malaise Card: Reports: irregular heart rhythm (hx of atrial fib), edema, swelling of feet/ankles, dyspnea on exertion and orthopnea; Denies: chest pain, palpitations, lightheadedness, syncope, pre-syncope, leg pain with exertion or acrocyanosis Resp: Reports: dyspnea, non-productive cough and chest congestion; Denies: wheezing or hemoptysis GI: Denies: abdominal pain, nausea, vomiting or diarrhea Musc: Reports: extremity swelling; Denies: neck pain, back pain, extremity pain, joint pain, joint swelling, joint redness or joint warmth Skin/Breast: Denies: rash Neuro: Denies: headache(s), numbness in extremities, weakness in extremities or sensory changes PFS ED PFSH: Medical History HTN (hypertension) Depression Hyperlipidemia Pacemaker Social History Smoking and tobacco/nicotine status: never used tobacco/nicotine Alcohol intake: never Lives independently: Yes Household members: none Physical Exam Const: COMMON NORMALS: no acute distress, average body habitus, no limitations, healthy appearing, alert and well nourished GENERAL APPEARANCE: cooperative HENMT: COMMON NORMALS: normocephalic and atraumatic HEAD & SCALP: normal to inspection, normocephalic and atraumatic Neck/C-Spine: COMMON NORMALS: full ROM, no lymphadenopathy, supple, no meningeal signs and no JVD Chest: COMMONS NORMALS: normal inspection of the chest and normal palpation of entire chest wall Resp: COMMON NORMALS: normal respiratory effort AUSCULTATION: diminished lung sounds (bilateral bases) bilateral Cardio: COMMON NORMALS: no JVD and regular rate RATE: regular rate RHYTHM: abnormal rhythm irregularly irregular GI: COMMON NORMALS: Normal to inspection, nondistended, normoactive bowel sounds present, Soft to palpation, non-tender, No hepatosplenomegaly present and no masses PALPATION: Yes Soft to palpation and Yes No hepatosplenomegaly present : COMMON NORMALS: Yes no CVA tenderness BLADDER/KIDNEY EXAM: Yes no CVA tenderness Back/Pelvis: COMMON NORMALS: no CVA tenderness and thoracic and lumbar spine normal to inspection Extremity: COMMON NORMALS: full ROM, capillary refill normal, no joint enlargement and no calf tenderness NARRATIVE EXTREMITY EXAM: bilateral symmetrical non-pitting edema GENERAL: Yes normal exam except as noted Neuro: COMMON NORMALS: moves all extremities, no focal motor deficits and no sensory deficits noted SENSORIUM/ORIENTATION: Yes alert MENINGEAL SIGNS: Yes no meningeal signs Skin: COMMON NORMALS: no rashes or lesions noted GENERAL SKIN EXAM: no rashes or lesions noted Course Consultations: Consultation #1: Dr. Baltazar-accepts hospitalization Vital Signs: Vital signs: Vital Signs Pulse Rate 91 05/31/24 14:24 Respiratory Rate 16 05/31/24 14:24 Blood Pressure 153/86 05/31/24 14:24 Pulse Oximetry 93 05/31/24 14:24 Oxygen Delivery Me thod Room Air 05/31/24 14:24 MDM - SOB/Dyspnea Medical Decision Making Patient is a nice 79-year-old female here with her daughter with complaints of worsening dyspnea. Clinically she appears fluid overloaded with new onset orthopnea, lower extremity swelling, bilateral pleural effusions seen on CXR, and elevated BNP at over 8400. She does not carry a diagnosis of CHF. Patient satting anywhere from 88-94% on RA during my exam. She was also found to be [id number] 8.6. She is not complaining of black or tarry stools. She was placed on Eliquis approximately 2 weeks ago by her aerophysicist for treatment of her atrial fibrillation. Will order stool hemoccult. Remainder of blood work is nonactionable. Spoke to hospitalist, Dr. Baltazar who is agreeable to admission. Medical Records I reviewed the patient's medical records. Lab Data I reviewed the patient's lab results. 05/31/24 12:05 05/31/24 12:05 Labs/Radiology: Radiology Impressions Chest X-Ray 05/31/24 11:38 IMPRESSION: Findings most compatible with congestive heart failure, less likely pneumonitis. Significant pleural effusions. Laboratory Results WBC 4.87 10^3/uL (3.29-11.43) 05/31/24 12:05 RBC 3.27 10^6/uL (3.85-5.65) L 05/31/24 12:05 Hgb 8.60 g/dL (11.27-16.99) L 05/31/24 12:05 Hct 28.8 % (36-47) L 05/31/24 12:05 MCV 88.1 fl (85-98) 05/31/24 12:05 MCH 26.3 pg (27-33) L 05/31/24 12:05 MCHC 29.9 g/dL (30-55) L 05/31/24 12:05 RDW 17.7 % (12.1-15.1) H 05/31/24 12:05 Plt Count 281 10^3/cmm (157-399) 05/31/24 12:05 MPV 9.2 fL (7.4-10.4) 05/31/24 12:05 Neut % (Auto) 67.5 % 05/31/24 12:05 Lymph % (Auto) 24.0 % 05/31/24 12:05 [place] % (Auto) 5.5 % 05/31/24 12:05 Eos % (Auto) 1.4 % 05/31/24 12:05 Baso % (Auto) 1.0 % 05/31/24 12:05 Neut # (Auto) 3.28 10^3/uL (1.8-7.7) 05/31/24 12:05 Lymph # (Auto) 1.2 10^3/uL (0.8-4.8) 05/31/24 12:05 [place] # (Auto) 0.3 10^3/uL (0.2-0.9) 05/31/24 12:05 Eos # (Auto) 0.1 10^3/uL (0.0-0.8) 05/31/24 12:05 Baso # (Auto) 0.1 10^3/uL (0.0-0.1) 05/31/24 12:05 Nucleated RBC % (auto) 0 % 05/31/24 12:05 Nucleated RBCs # 0.0 /100WBC 05/31/24 12:05 Sodium 137 mmol/L (136-145) 05/31/24 12:05 Potassium 3.7 mmol/L (3.5-5.1) 05/31/24 12:05 Chloride 99 mmol/L (98-107) 05/31/24 12:05 Carbon Dioxide 24 mmol/L (22-29) 05/31/24 12:05 Anion Gap 17.7 (5-19) 05/31/24 12:05 BUN 13 mg/dL (8-23) 05/31/24 12:05 Creatinine 1.1 mg/dL (0.5-0.9) H 05/31/24 12:05 GFR Calculation Not Reportable 05/31/24 12:05 Glucose 96 mg/dL (65-115) 05/31/24 12:05 Calculated Osmolality 284 mOsm/kg (285-295) L 05/31/24 12:05 Calcium 8.9 mg/dL (8.5-10.5) 05/31/24 12:05 Total Bilirubin 0.5 mg/dL (0.15-1.2) 05/31/24 12:05 AST 23 U/L (0-32) 05/31/24 12:05 ALT 9 U/L (0-33) 05/31/24 12:05 Alkaline Phosphatase 73 U/L (35-105) 05/31/24 12:05 Troponin T Baseline 38 ng/L (0-10) H 05/31/24 12:05 Troponin T 120 Minute 34.62 ng/L (0-10) H 05/31/24 14:01 Delta Troponin T -3.38 ABS# (0-10) L 05/31/24 14:01 NT-Pro-B Natriuret Pep 8466 pg/mL (0-450) H 05/31/24 12:05 Total Protein 6.7 g/dL (6.6-8.7) 05/31/24 12:05 Albumin 3.7 g/dL (3.5-5.2) 05/31/24 12:05 Globulin 3.0 g/dL (1.3-4.6) 05/31/24 12:05 Procalcitonin 0.11 ng/mL (0-0.5) 05/31/24 12:05 Urine Color Yellow (Yellow) 05/31/24 13:42 Urine Appearance Clear (CLEAR) 05/31/24 13:42 Urine pH 6 (5-7) 05/31/24 13:42 Ur Specific [place] 1.020 (1.005-1.030) 05/31/24 13:42 Urine Protein Neg (Negative) 05/31/24 13:42 Urine Glucose (UA) 4+ (Normal) H 05/31/24 13:42 Urine Ketones Negative (Negative) 05/31/24 13:42 Urine Blood Neg (Negative) 05/31/24 13:42 Urine Nitrate Negative (Negative) 05/31/24 13:42 Urine Bilirubin Neg (Negative) 05/31/24 13:42 Urine Urobilinogen Norm mg/dL (Negative) 05/31/24 13:42 Ur Leukocyte Esterase Negative (Negative) 05/31/24 13:42 Amorphous Sediment Not Reportable 05/31/24 13:42 Influenza A (PCR) Negative (Negative) 05/31/24 13:09 Influenza Type B (PCR) Negative (Negative) 05/31/24 13:09 RSV (PCR) Negative (Negative) 05/31/24 13:09 SARS-CoV-2 (PCR) Negative (Negative) 05/31/24 13:09 All radiology interpretation(s) finalized by discharge Discharge Plan Discharge Patient Disposition: Admitted As Inpatient Clinical Impression: Congestive heart failure, Anemia, Atrial fibrillation Condition: Stable Prescriptions: No Action aspirin [Adult Aspirin Regimen] 81 mg tablet,delayed release (DR/EC) 81 mg PO DAILY fluoxetine [Prozac] 40 mg capsule 40 mg PO DAILY donepezil 5 mg tablet 5 mg PO QPM ferrous sulfate 325 mg (65 mg iron) tablet 325 mg PO DAILY Eliquis 2.5 mg tablet 2.5 mg PO BID Jardiance 10 mg tablet 10 mg PO QAM buspirone 5 mg tablet 5 mg PO TID atorvastatin 80 mg tablet 80 mg PO QPM diltiazem HCl [DILT-XR] 120 mg capsule,ext.rel 24h degradable 120 mg PO DAILY Referrals: Vladislav Hernandez DO [Primary Care Provider] - Print Language: Moldovan Coding Level of Care Code ED Order Taker for Chg Kimberly
--- NOTE | 2024-05-31 13:38 | ECG_ITS ---
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 Measurements Intervals [place] Rate: 89 P: 0 IL: 0 QRS: 51 QRSD: 81 T: 69 QT: 363 QTc: 444 Interpretive Statements ATRIAL FIBRILLATION ANTEROSEPTAL MYOCARDIAL INFARCTION , OF INDETERMINATE AGE [40+ ms Q WAVE IN V1-V4] Compared to ECG 05/31/2024 11:58:07 Ventricular-paced complex(es) or rhythm no longer present Myocardial infarct finding still present Electronically Signed On 06-04-2024 18:27:45 CDT by Gonsalo Cardona M.D. [email or web address]
[2024-05-31 13:39] LABS: Procalcitonin 0.11 ng/mL (0-0.5)
[2024-05-31 13:51] LABS: Add Urine Microscopic? NO
[2024-05-31 13:54] LABS: Bilirubin Urine Neg (Negative); Blood Urine Neg (Negative); Glucose Urine UA 4+ (Normal); Ketones Urine Negative (Negative); Leukocyte Esterase Urine Negative (Negative); Nitrate Urine Negative (Negative); Protein Urine Neg (Negative); Urine Appearance Clear (CLEAR); Urine Color Yellow (Yellow); Urobilinogen Urine Norm (Negative); pH Urine 6 (5-7)
[2024-05-31 13:56] LABS: Charge for UA Resulting for Rev
[2024-05-31 13:56] LABS: Influenza A NEGATIVE (Negative); Influenza B NEGATIVE (Negative); Respiratory Syncytial Virus Ce NEGATIVE (Negative); SARS-CoV-2 PCR NEGATIVE (Negative)
[2024-05-31 14:36] LABS: Troponin 5 2HR 34.62 ng/L (0-10)
[2024-05-31] MEDS: FUROsemide 10 mg/mL SDV 10mL 60 MG IVP (15:01)
[2024-05-31 15:03] LABS: Troponin 5 2HR Delta -3.38 ABS# (0-10)
[2024-05-31 15:03] LABS: Troponin(5th) Baseline 38 ng/L (0-10)
--- NOTE | 2024-05-31 16:42 | USCV_ITS ---
Sixto Chang Age: 79 Gender: F : 1945 Exam Date: 05/31/2024 20:25 Ordering Phys: Christelle Baltazar MD Technologist: LOREN Exam Location: [facility] [place] Indication: SOB x 6 months, History of CHF, BLE edema, pacer, Atrial fibrillation, HTN BP: 185 / 97 HR: 93 Rhythm: Atrial fibrillation Technical Quality: Adequate MEASUREMENTS (Male / Female) Normal Values 2D ECHO LV Diastolic Diameter PLAX 3.8 cm 4.2 - 5.9 / 3.9 - 5.3 cm IVS Diastolic Thickness 1.3 cm 0.6 - 1.0 / 0.6 - 0.9 cm IVS Systolic Thickness 1.3 cm LVPW Diastolic Thickness 1.3 cm 0.6 - 1.0 / 0.6 - 0.9 cm LVPW Systolic Thickness 1.8 cm LVOT Diameter 1.8 cm LV Ejection Fraction 2D Teich 66.3 % LV Ejection Fraction MOD 4C 57.8 % LV Ejection Fraction MOD 2C 59.8 % LV Ejection Fraction 2C AL 59.9 % Aorta at Sinotubular Diameter 2.3 cm IVC Diameter 1.4 cm M-MODE LA Ao Ratio MM 1.2 AV Cusp Separation MM 1.6 cm DOPPLER AV Peak Velocity 159.0 cm/s LVOT Peak Velocity 105.0 cm/s AV Area Cont Eq vti 2.2 cm squared AV Area Cont Eq pk 1.6 cm squared MV Peak Velocity 174.0 cm/s MV Area PHT 3.7 cm squared Mitral E to A Ratio 0.0 TV Peak Velocity 305.0 cm/s TR Peak Velocity 342.0 cm/s TR Peak Gradient 46.8 mmHg TV Peak E Velocity 47.0 cm/s PV Peak Velocity 105.0 cm/s FINDINGS Left Ventricle Moderately increased left ventricular cavity size. Moderately decreased left ventricular systolic function. Left ventricular ejection fraction is estimated at 40-45%. Global left ventricular hypokinesis. Grade II/IV diastolic dysfunction, moderately elevated filling pressures. Right Ventricle The right ventricle is normal in size and function. Right Atrium The right atrium is normal in size. Left Atrium Moderately increased left atrial size. Mitral Valve Mildly thickened mitral valve. No mitral valve stenosis. Mild- moderate mitral valve regurgitation. Aortic Valve Structurally normal aortic valve without significant sclerosis or stenosis. There is no aortic regurgitation. Tricuspid Valve Moderate tricuspid valve regurgitation. Pulmonic Valve Structurally normal pulmonic valve without significant stenosis. There is no pulmonic regurgitation. Pericardium Normal pericardium without effusion. Aorta Normal ascending aorta dimension. IVC Inferior vena cava not visualized. CONCLUSIONS Moderately increased left ventricular cavity size. Moderately decreased left ventricular systolic function. Left ventricular ejection fraction is estimated at 40-45%. Global left ventricular hypokinesis. Grade II/IV diastolic dysfunction, moderately elevated filling pressures. Moderately increased left atrial size. Mildly thickened mitral valve. No mitral valve stenosis. Mild- moderate mitral valve regurgitation. There is no pericardial effusion. Inferior vena cava not visualized. Luis E Deng MD (Electronically Signed) Final Date: 01 June 2024 15:33 S
--- NOTE | 2024-05-31 16:46 | PM.HP ---
Providers/Chief Complaint Admitting Physician: Christelle Baltazar MD Primary Care Provider: Vladislav Hernandez DO Chief Complaint: SOB History of Present Illness Sixto Chang is a 79 year old female with PMH A fib, on chronic A/c with Eliquis 2.5mg BID, DM, PPM in place presenting to the hospital today with 4-5 weeks of increasing shortness of breath. Patient states she is typically able to perfrom her ADLs but over the past few weeks has been unable to do the same. She has difficulty walking beyong a few feet. She sleeps on 2 pillows and this hasnt changed recently. Noted Le edema +. Noted cough +. She feels like she cant get enough air . She is currently on RA when examined. Review of Systems General: Reports: 10 or more systems reviewed and unremarkable except in HPI and below Const: Denies: fever(s), chills or body aches Eyes: Denies: change in vision, blurry vision or photophobia ENMT: Reports: hoarseness; Denies: throat pain, enlarged tonsils, odynophagia or nasal congestion Card: Denies: chest pain, palpitations, irregular heart rhythm, edema, swelling of feet/ankles, lightheadedness, pre-syncope, dyspnea on exertion or orthopnea Resp: Denies: dyspnea, productive cough, non-productive cough, wheezing, stridor, pain on inspiration, change in phlegm color, hemoptysis or chest congestion GI: Denies: abdominal pain, nausea, vomiting, hematemesis, coffee ground emesis, dysphagia, heartburn, diarrhea, constipation, GI cramping, change in stool character, hematochezia or melena : Denies: flank pain, difficulty voiding, dysuria, urinary frequency, urinary urgency, urinary hesitancy or hematuria Musc: Denies: neck pain, back pain, extremity pain, joint swelling, joint warmth or deformity Neuro: Denies: headache(s), numbness in extremities, weakness in extremities, sensory changes, difficulty walking, frequent falls, dizziness, vertigo, behavioral changes, Slurred speech present or seizure-like activity Psych: Denies: anxiety, depression, suicidal ideation or homicidal ideation Endo: Denies: polyuria, polydipsia, tired all the time, cold intolerance or hot flashes John/Lymph: Denies: easy bruising or easy bleeding Medications/Allergies Home Medications ?Medication ?Instructions ?Recorded ?Confirmed ?Last Taken ?Type aspirin 81 mg tablet,delayed 81 mg PO DAILY 11/26/20 05/31/24 05/31/24 History release (Adult Aspirin Regimen) fluoxetine 40 mg capsule (Prozac) 40 mg PO DAILY 11/26/20 05/31/24 05/31/24 History atorvastatin 80 mg tablet 80 mg PO QPM 08/25/23 05/31/24 05/30/24 History buspirone 5 mg tablet 5 mg PO TID 08/25/23 05/31/24 05/31/24 History diltiazem HCl 120 mg 120 mg PO DAILY 08/25/23 05/31/24 05/31/24 History capsule,extended release 24 hr, controlled (DILT-XR) apixaban 2.5 mg tablet (Eliquis) 2.5 mg PO BID 05/31/24 05/31/24 05/31/24 History donepezil 5 mg tablet 5 mg PO QPM 05/31/24 05/31/24 05/30/24 History empagliflozin 10 mg tablet 10 mg PO QAM 05/31/24 05/31/24 05/31/24 History (Jardiance) ferrous sulfate 325 mg (65 mg 325 mg PO DAILY 05/31/24 05/31/24 05/31/24 History iron) tablet Allergies Allergy/AdvReac Type Severity Reaction Status Date / Time calcium Allergy Unknown Verified 05/31/24 17:02 metoprolol Allergy Unknown Verified 05/31/24 17:02 PFSH Acute PFSH: Medical History HTN (hypertension) Depression Hyperlipidemia Pacemaker Social History Smoking and tobacco/nicotine status: never used tobacco/nicotine Alcohol intake: never Lives independently: Yes Household members: none Vitals/I&O/Wt Last Vital Signs Pulse 91 05/31/24 14:24 Resp 16 05/31/24 14:24 BP 153/86 05/31/24 14:24 Pulse Ox 93 05/31/24 14:24 O2 Del Method Room Air 05/31/24 14:24 05/31/24 05/31/24 05/31/24 06:59 14:59 22:59 Output Total 200 / 200 Balance -200 / -200 Weight last 48 hrs Weight 45.359 kg Physical Exam Narrative: General: No acute distress, AO x3 HEENT: PERRLA, pupils bilaterally equal and reactive, pallors not present Chest: Normal vesicular breath sounds, no added sounds, equal good air entry bilaterally CVS: S1-S2 regular, no murmurs, no tachycardia, no gallops, no rubs Abdomen: Soft, nontender, no organomegaly, bowel sounds present Neuro: No focal deficits, no facial deformity, AO x3, power 5/5 in all limbs EXT : 2+ pitting edema B/L Data 05/31/24 12:05 05/31/24 12:05 Other data: Radiology Impressions Chest X-Ray 05/31/24 11:38 IMPRESSION: Findings most compatible with congestive heart failure, less likely pneumonitis. Significant pleural effusions. Laboratory Results WBC 4.87 10^3/uL (3.29-11.43) 05/31/24 12:05 RBC 3.27 10^6/uL (3.85-5.65) L 05/31/24 12:05 Hgb 8.60 g/dL (11.27-16.99) L 05/31/24 12:05 Hct 28.8 % (36-47) L 05/31/24 12:05 MCV 88.1 fl (85-98) 05/31/24 12:05 MCH 26.3 pg (27-33) L 05/31/24 12:05 MCHC 29.9 g/dL (30-55) L 05/31/24 12:05 RDW 17.7 % (12.1-15.1) H 05/31/24 12:05 Plt Count 281 10^3/cmm (157-399) 05/31/24 12:05 MPV 9.2 fL (7.4-10.4) 05/31/24 12:05 Neut % (Auto) 67.5 % 05/31/24 12:05 Lymph % (Auto) 24.0 % 05/31/24 12:05 [place] % (Auto) 5.5 % 05/31/24 12:05 Eos % (Auto) 1.4 % 05/31/24 12:05 Baso % (Auto) 1.0 % 05/31/24 12:05 Neut # (Auto) 3.28 10^3/uL (1.8-7.7) 05/31/24 12:05 Lymph # (Auto) 1.2 10^3/uL (0.8-4.8) 05/31/24 12:05 [place] # (Auto) 0.3 10^3/uL (0.2-0.9) 05/31/24 12:05 Eos # (Auto) 0.1 10^3/uL (0.0-0.8) 05/31/24 12:05 Baso # (Auto) 0.1 10^3/uL (0.0-0.1) 05/31/24 12:05 Nucleated RBC % (auto) 0 % 05/31/24 12:05 Nucleated RBCs # 0.0 /100WBC 05/31/24 12:05 Sodium 137 mmol/L (136-145) 05/31/24 12:05 Potassium 3.7 mmol/L (3.5-5.1) 05/31/24 12:05 Chloride 99 mmol/L (98-107) 05/31/24 12:05 Carbon Dioxide 24 mmol/L (22-29) 05/31/24 12:05 Anion Gap 17.7 (5-19) 05/31/24 12:05 BUN 13 mg/dL (8-23) 05/31/24 12:05 Creatinine 1.1 mg/dL (0.5-0.9) H 05/31/24 12:05 GFR Calculation Not Reportable 05/31/24 12:05 Glucose 96 mg/dL (65-115) 05/31/24 12:05 Calculated Osmolality 284 mOsm/kg (285-295) L 05/31/24 12:05 Calcium 8.9 mg/dL (8.5-10.5) 05/31/24 12:05 Total Bilirubin 0.5 mg/dL (0.15-1.2) 05/31/24 12:05 AST 23 U/L (0-32) 05/31/24 12:05 ALT 9 U/L (0-33) 05/31/24 12:05 Alkaline Phosphatase 73 U/L (35-105) 05/31/24 12:05 Troponin T Baseline 38 ng/L (0-10) H 05/31/24 12:05 Troponin T 120 Minute 34.62 ng/L (0-10) H 05/31/24 14:01 Delta Troponin T -3.38 ABS# (0-10) L 05/31/24 14:01 Troponin T Hi Sens 6Hr 40.14 ng/L (0-10) H 05/31/24 18:07 Troponin T Hi Sens 6Hr Delta 2.14 ng/L (0-12) 05/31/24 18:07 NT-Pro-B Natriuret Pep 8466 pg/mL (0-450) H 05/31/24 12:05 Total Protein 6.7 g/dL (6.6-8.7) 05/31/24 12:05 Albumin 3.7 g/dL (3.5-5.2) 05/31/24 12:05 Globulin 3.0 g/dL (1.3-4.6) 05/31/24 12:05 Procalcitonin 0.11 ng/mL (0-0.5) 05/31/24 12:05 TSH 3.54 uIU/mL (0.27-4.20) 05/31/24 14:04 Urine Color Yellow (Yellow) 05/31/24 13:42 Urine Appearance Clear (CLEAR) 05/31/24 13:42 Urine pH 6 (5-7) 05/31/24 13:42 Ur Specific [place] 1.020 (1.005-1.030) 05/31/24 13:42 Urine Protein Neg (Negative) 05/31/24 13:42 Urine Glucose (UA) 4+ (Normal) H 05/31/24 13:42 Urine Ketones Negative (Negative) 05/31/24 13:42 Urine Blood Neg (Negative) 05/31/24 13:42 Urine Nitrate Negative (Negative) 05/31/24 13:42 Urine Bilirubin Neg (Negative) 05/31/24 13:42 Urine Urobilinogen Norm mg/dL (Negative) 05/31/24 13:42 Ur Leukocyte Esterase Negative (Negative) 05/31/24 13:42 Amorphous Sediment Not Reportable 05/31/24 13:42 Influenza A (PCR) Negative (Negative) 05/31/24 13:09 Influenza Type B (PCR) Negative (Negative) 05/31/24 13:09 RSV (PCR) Negative (Negative) 05/31/24 13:09 SARS-CoV-2 (PCR) Negative (Negative) 05/31/24 13:09 A&P Assessment and plan (1) Pulmonary edema: CXR showing B/l Pulmonary edema elevated BNP LE swelling Overall clinical features appear to be related to CHF , unable to comment at this time with regards to chronicity or type as no recent echo available Obtain echo received 60mg iv lasix in ER followed by 40mg iv BID monitor urine output and creatinine may be related to uncontrolled BP, today noted to have BP 187/92. Continue home meds. Add hydralazine prn. pacemaker check (2) Elevated troponin: elveated troponin 30s range, no significantd elta at 2 hrs, await 6 hrs trend no acute ST-T wave changes denies active chest pain less likely ACS (3) Anemia: check FOBT , iron panel, folate and b12 levels Qualifiers: Anemia type: unspecified type Qualified Code(s): D64.9 - Anemia, unspecified (4) Congestive heart failure: Qualifiers: Heart failure chronicity: unspecified Heart failure type: unspecified Qualified Code(s): I50.9 - Heart failure, unspecified Plan dvt ppx: SCDs only for now while pending FOBT Full code PDMP PDMP Reviewed: Not Reviewed Attestations Medical Necessity Statement*: > 2 midnight anticipated Coding Level of Care Code Acute Code for Chg Fwd Diagnoses Pulmonary edema J81.1 Elevated troponin R79.89 Anemia D64.9 Anemia type: unspecified type Congestive heart failure I50.9 Heart failure chronicity: unspecified Heart failure type: unspecified
--- NOTE | 2024-05-31 17:17 | PC.NURSE ---
patient has a [employer] pacemaker which was interrogated by nurse at 1715 on 05/31. Pacemaker was put in at [facility] about five years ago per patient.
[2024-05-31 17:27] LABS: Thyroid Stimulating Hormone 3.54 uIU/mL (0.27-4.20)
[2024-05-31] MEDS: atorvastatin 40 mg Tablet 80 MG PO (17:33)
[2024-05-31] MEDS: donepezil 5 MG Tablet PO (17:33)
[2024-05-31 18:59] LABS: Troponin 5 6HR 40.14 ng/L (0-10); Troponin 5 6HR Delta 2.14 ng/L (0-12)
--- NOTE | 2024-05-31 21:23 | ECG_ITS ---
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1945 Requested By: Stephany Concepcion Order Number: [id number] Reading MD: EVELINE WIGGINS Measurements Intervals [place] Rate: 97 P: 0 [place]: 0 QRS: 28 QRSD: 78 T: 32 QT: 347 QTc: 441 Interpretive Statements ATRIAL FIBRILLATION ELECTRONIC VENTRICULAR PACEMAKER -- CONTOUR ANALYSIS BASED ON INTRINSIC RHYTHM SEPTAL MYOCARDIAL INFARCTION , OF INDETERMINATE AGE [40+ ms Q WAVE IN V1/V2] Compared to ECG 05/31/2024 14:00:09 Atrial fibrillation no longer present Myocardial infarct finding still present Electronically Signed On 06-05-2024 21:53:15 CDT by EVELINE WIGGINS [email or web address]
[2024-05-31] MEDS: BuSPIRONE 10 mg Tablet 5 MG PO (21:25)
[2024-06-01 04:00] VITALS: BP 152/95; PULSE 108; RESP 19; TEMP 36.9; O2SAT 92
[2024-06-01 04:11] LABS: Basophils % 0.6 %; Eosinophils # 0.1 10^3/uL (0.0-0.8); Eosinophils % 2.7 %; Hematocrit 28.2 % (36-47); Lymphocytes # 1.3 10^3/uL (0.8-4.8); Lymphocytes % 27.4 %; Mean Corpuscular HGB Conc 30.1 g/dL (30-55); Mean Corpuscular Hemoglobin 25.9 pg (27-33); Mean Platelet Volume 9.1 fL (7.4-10.4); Monocytes # 0.4 10^3/uL (0.2-0.9); Monocytes % 8.6 %; Neutrophils # 2.94 10^3/uL (1.8-7.7); Neutrophils % 60.1 %; Nucleated Red Blood Cells % 0 %; Platelet Count 264 10^3/cmm (157-399); Red Blood Count 3.28 10^6/uL (3.85-5.65); Red Cell Distribution Width 17.7 % (12.1-15.1); White Blood Count 4.89 10^3/uL (3.29-11.43)
[2024-06-01 04:35] LABS: Iron 21 ug/dL (37-145)
[2024-06-01 04:46] LABS: Alanine Aminotransferase 8 U/L (0-33); Albumin Level 3.4 g/dL (3.5-5.2); Alkaline Phosphatase 69 U/L (35-105); Anion Gap 13.3 (5-19); Aspartate Amino Transferase 20 U/L (0-32); Blood Urea Nitrogen 14 mg/dL (8-23); Calcium 8.6 mg/dL (8.5-10.5); Carbon Dioxide 29 mmol/L (22-29); Chloride 99 mmol/L (98-107); Creatinine Clr Calc Pharmacy 29.6635; Globulin 2.8 g/dL (1.3-4.6); Glucose 82 mg/dL (65-115); Magnesium 1.8 mg/dL (1.7-2.3); Osmolality Calculated 286 mOsm/kg (285-295); Potassium 3.3 mmol/L (3.5-5.1); Sodium 138 mmol/L (136-145); Total Bilirubin 0.5 mg/dL (0.15-1.2); Total Protein 6.2 g/dL (6.6-8.7)
[2024-06-01 04:50] LABS: Vitamin B12 587 pg/mL (232-1245)
[2024-06-01 04:52] LABS: Folate Level 9.8 ng/mL (4.8-37.3)
[2024-06-01 07:40] VITALS: BP 141/84; PULSE 111; RESP 19; TEMP 36.6; O2SAT 90
[2024-06-01] MEDS: aspirin 81 mg EC Tablet PO (08:41)
[2024-06-01] MEDS: FUROsemide 10 mg/mL SDV 4mL 40 MG IVP (08:41)
[2024-06-01] MEDS: fluoxetine 20 mg Capsule 40 MG PO (08:41)
[2024-06-01] MEDS: pantoprazole DR 40 mg Tablet PO (08:41)
[2024-06-01] MEDS: dilTIAZem ER (24HR) 120 mg Capsule PO (08:41)
[2024-06-01] MEDS: BuSPIRONE 10 mg Tablet 5 MG PO ×3 (08:42→20:02)
[2024-06-01] MEDS: dilTIAZem 30 mg Tablet PO (10:56)
[2024-06-01] MEDS: potassium chloride ER 20 mEq Tablet 40 MEQ PO (10:57)
[2024-06-01 11:00] VITALS: BP 144/93; PULSE 128; RESP 23; TEMP 36.8; O2SAT 94
--- NOTE | 2024-06-01 14:30 | PM.PN ---
Subjective Subjective: Patient will follow today. Lower extremity swelling is much better. Urine output is not accurately charted. Medications: Reviewed: Yes Vitals/I&O/Wt Last Vital Signs Temp 98.2 F 06/01/24 11:00 Pulse 128 H 06/01/24 11:00 Resp 23 H 06/01/24 11:00 BP 144/93 06/01/24 11:00 Pulse Ox 94 06/01/24 11:00 O2 Del Method Room Air 06/01/24 07:40 05/31/24 06/01/24 06/01/24 22:59 06:59 14:59 Intake Total 920 / 920 100 / 1020 240 / 240 Output Total 200 / 200 Balance 720 / 720 100 / 820 240 / 240 Weight last 48 hrs Weight 44.084 kg Weight 96.6 kg Weight 45.416 kg Weight 45.359 kg Physical Exam Narrative: General: No acute distress, AO x3 HEENT: PERRLA, pupils bilaterally equal and reactive, pallors not present Chest: Normal vesicular breath sounds, no added sounds, equal good air entry bilaterally CVS: S1-S2 regular, no murmurs, no tachycardia, no gallops, no rubs Abdomen: Soft, nontender, no organomegaly, bowel sounds present Neuro: No focal deficits, no facial deformity, AO x3, power 5/5 in all limbs EXT : 2+ pitting edema B/L Data 06/01/24 03:35 06/01/24 03:35 A&P Assessment and plan (1) Pulmonary edema: CXR showing B/l Pulmonary edema elevated BNP LE swelling Overall clinical features appear to be related to CHF , unable to comment at this time with regards to chronicity or type as no recent echo available Obtain echo received 60mg iv lasix in ER followed by 40mg iv BID monitor urine output and creatinine may be related to uncontrolled BP, today noted to have BP 187/92. Continue home meds. Add hydralazine prn. pacemaker check (2) Elevated troponin: elveated troponin 30s range, no significantd elta at 2 hrs, await 6 hrs trend no acute [address]-T wave changes denies active chest pain less likely ACS (3) Anemia: check FOBT , iron panel, folate and b12 levels Qualifiers: Anemia type: unspecified type Qualified Code(s): D64.9 - Anemia, unspecified (4) Congestive heart failure: Qualifiers: Heart failure chronicity: unspecified Heart failure type: unspecified Qualified Code(s): I50.9 - Heart failure, unspecified Plan dvt ppx: SCDs only for now while pending FOBT Full code June 01, 2024 Patient feels better today. She is breathing easier. Saturating 94% on room air. Noted to be tachycardic with heart rate in the 120s. Increase Cardizem today to 60 mg every 6 hours. Plan to transition to long-acting once appropriate dose has been determined. Pacemaker check pending. Awaiting echocardiogram. Hemoglobin stable today from 8.6-8.5. No gross melena. Pending FOBT. Iron level low at 21. Normal B12 and folate. Creatinine stable at 1.1. Transition IV to oral Lasix today. PDMP PDMP Reviewed: Not Reviewed Attestations Medical Necessity Statement*: Transition diuretics from IV to oral, awaiting echocardiogram and pacemaker interrogation report. Awaiting FOBT. Coding Level of Care Code Acute Code for [facility] Fwd Diagnoses Pulmonary edema J81.1 Elevated troponin R79.89 Anemia D64.9 Anemia type: unspecified type Congestive heart failure I50.9 Heart failure chronicity: unspecified Heart failure type: unspecified
[2024-06-01] MEDS: acetaminophen 325 mg Tablet 650 MG PO (14:31)
[2024-06-01 16:00] VITALS: BP 133/80; PULSE 87; RESP 18; TEMP 36.9; O2SAT 93
[2024-06-01] MEDS: dilTIAZem 60 mg Tablet PO ×2 (16:17→20:02)
[2024-06-01] MEDS: donepezil 5 MG Tablet PO (17:15)
[2024-06-01] MEDS: atorvastatin 40 mg Tablet 80 MG PO (17:15)
[2024-06-01] MEDS: iron polysaccharide complex 150 mg Capsule PO (17:15)
[2024-06-01 19:16] VITALS: BP 116/60; PULSE 84; RESP 17; TEMP 36.9; O2SAT 98
[2024-06-02] VITALS: BP 130/68; PULSE 88; RESP 14; TEMP 36.6; O2SAT 95
[2024-06-02 03:15] LABS: Basophils % 0.3 %; Eosinophils # 0.1 10^3/uL (0.0-0.8); Hematocrit 27.8 % (36-47); Lymphocytes # 1.5 10^3/uL (0.8-4.8); Lymphocytes % 25.4 %; Mean Corpuscular HGB Conc 30.2 g/dL (30-55); Mean Corpuscular Hemoglobin 26.3 pg (27-33); Mean Corpuscular Volume 87.1 fl (85-98); Mean Platelet Volume 9.2 fL (7.4-10.4); Monocytes # 0.6 10^3/uL (0.2-0.9); Monocytes % 9.1 %; Neutrophils # 3.81 10^3/uL (1.8-7.7); Neutrophils % 62.7 %; Nucleated Red Blood Cells % 0 %; Platelet Count 281 10^3/cmm (157-399); Red Blood Count 3.19 10^6/uL (3.85-5.65); White Blood Count 6.07 10^3/uL (3.29-11.43)
[2024-06-02] MEDS: dilTIAZem 60 mg Tablet PO ×3 (03:36→15:05)
[2024-06-02 03:39] LABS: Alanine Aminotransferase < 5 U/L (0-33); Albumin Level 3.3 g/dL (3.5-5.2); Alkaline Phosphatase 71 U/L (35-105); Anion Gap 13.5 (5-19); Aspartate Amino Transferase 17 U/L (0-32); Blood Urea Nitrogen 18 mg/dL (8-23); Calcium 8.5 mg/dL (8.5-10.5); Carbon Dioxide 29 mmol/L (22-29); Chloride 103 mmol/L (98-107); Creatinine Clr Calc Pharmacy 21.5058; Globulin 2.4 g/dL (1.3-4.6); Glucose 92 mg/dL (65-115); Osmolality Calculated 296 mOsm/kg (285-295); Potassium 3.5 mmol/L (3.5-5.1); Sodium 142 mmol/L (136-145); Total Bilirubin 0.3 mg/dL (0.15-1.2); Total Protein 5.7 g/dL (6.6-8.7)
[2024-06-02 04:00] VITALS: BP 121/63; PULSE 85; RESP 16; TEMP 36.9; O2SAT 92
[2024-06-02] MEDS: FUROsemide 40 mg Tablet PO (07:55)
[2024-06-02] MEDS: BuSPIRONE 10 mg Tablet 5 MG PO ×2 (07:56→15:05)
[2024-06-02] MEDS: fluoxetine 20 mg Capsule 40 MG PO (07:56)
[2024-06-02] MEDS: pantoprazole DR 40 mg Tablet PO (07:56)
[2024-06-02] MEDS: iron polysaccharide complex 150 mg Capsule PO ×2 (07:56→17:44)
[2024-06-02] MEDS: aspirin 81 mg EC Tablet PO (07:57)
[2024-06-02 08:00] VITALS: BP 135/74; PULSE 84; RESP 24; TEMP 36.6; O2SAT 95
--- NOTE | 2024-06-02 09:45 | PC.CHAP ---
Pastoral Care Encounter/Spiritual Assessment Type of Contact [] Declined pastry supervisor visit [] Patient/Family/Request visit [] Outpatient visit [] Follow-up visit [] Physician referral [] Code/Alert [x] Routine visit [] Staff referral [] Actively dying [] Patient sleeping [] Family support [] [] Out of room [] Palliative care [] [] Receiving care in room [] Pre-surgical visit [] Trauma [] Long length of stay [] ICU visit [] Other: Relational/Emotional Strength [x] Patient feels connected with others/family/visitors/staff [] Distress [] Loneliness/isolation [] Abandonment Spirituality of Patient [x] Person of Cassia [] Attends Druze of their Cassia [x] Believes in Prayer [] Reads Bible or Orthodox materials [] There are Spiritual issues to be addressed Driller Machine Interventions [x] Prayer [x] Active listening [] Non-anxious presence [x] Spiritual/emotional support [] Crisis/trauma care [] Spiritual counseling [] Bereavement support [] Provided bereavement packet [] Provided Bible/devotional materials [] Provided toy/stuffed animal, coloring book to patient or family member [] Provided Communion [] Anointing/[place] [] Salvation [x] Completed spiritual assessment [] Other: Impact on Illness or Injury [] Angry [] Fearful [] Anxious [] Often cries [] Exhaustion [] Unable to work [] Unable to attend protestant [] Unable to walk/stand [] Unable to read [] Unable to drive [] Unable to eat/drink [] Unable to sleep [] Unable to be with family [] Patient intubated [] Other: Summary Time spent with patient 5 min
--- NOTE | 2024-06-02 10:16 | PC.NURSE ---
Provider asked nursing to start NS at 75 ml/hr for 500 mls. Check creatinine at 1530. Orders entered.
[2024-06-02] MEDS: sodium chloride 0.9% 500 ML 75 ML IV (10:38)
[2024-06-02 12:00] VITALS: BP 134/66; PULSE 72; RESP 20; TEMP 36.7; O2SAT 92
[2024-06-02 16:00] VITALS: BP 141/61; PULSE 90; RESP 21; O2SAT 94
[2024-06-02 16:06] LABS: Creatinine Clr Calc Pharmacy 22.8043
[2024-06-02 16:55] VITALS: BP 141/61; PULSE 79; RESP 22; O2SAT 93
[2024-06-02] MEDS: atorvastatin 40 mg Tablet 80 MG PO (17:44)
[2024-06-02] MEDS: donepezil 5 MG Tablet PO (17:44)
--- NOTE | 2024-06-02 18:18 | P.DS_ITS ---
Discharge Providers Date of Admission: 05/31/24 15:31 Date of Discharge: June 02 2024 Attending Provider at Admission: Christelle Baltazar MD Attending Provider at Discharge: Christelle Baltazar MD Primary Care Provider: Vladislav Hernandez DO Diagnoses at Discharge Discharge Diagnosis (1) Pulmonary edema: Status: Acute (2) Elevated troponin: Status: Acute (3) Anemia: Status: Acute Qualifiers: Anemia type: unspecified type Qualified Code(s): D64.9 - Anemia, unspecified (4) Congestive heart failure: Status: Acute Qualifiers: Heart failure chronicity: unspecified Heart failure type: unspecified Qualified Code(s): I50.9 - Heart failure, unspecified Reason for Visit Reason for Visit: SOB Brief History: Sixto Chang is a 79 year old female with PMH A fib, on chronic A/c with Eliquis 2.5mg BID, DM, PPM in place presenting to the hospital today with 4-5 weeks of increasing shortness of breath. Patient states she is typically able to perfrom her ADLs but over the past few weeks has been unable to do the same. She has difficulty walking beyong a few feet. She sleeps on 2 pillows and this hasnt changed recently. Noted Le edema +. Noted cough +. She feels like she cant get enough air . Hospital Course Hospital Course She was admitted to the hospital in view of acute on chronic systolic heart failure exacerbation. She received iv diuresis with lasix and responded well. Her dyspnea improved significantly. Lower extremity edema resolved. Her creat trended up to 1.5, likely due to overdiuresis with lasix, She received gentle iv hydration today for the PAMELLA. She was recommended to stay in the hospital to trend creatinine over the next 24 hrs however she refused this. Stated that she would like to return home since she feels much better. She stated that she has lived with cardiac and renal comorbidities for a long time, has a pacemaker and as such feels safe returning home. Creatinine was checked the same afternoon and remained stable at 1.5. She was diuresing well at discharge. Lasix was transi tioned to po mg po prn at discharge. She was discharged per her request. Physical Exam Narrative: General: No acute distress, AO x3 HEENT: PERRLA, pupils bilaterally equal and reactive, pallors not present Chest: Normal vesicular breath sounds, no added sounds, equal good air entry bilaterally CVS: S1-S2 regular, no murmurs, no tachycardia, no gallops, no rubs Abdomen: Soft, nontender, no organomegaly, bowel sounds present Neuro: No focal deficits, no facial deformity, AO x3, power 5/5 in all limbs Discharge Data Studies Completed and Pending Completed Studies During Hospitalization Category Date Time Status XR chest 1V portable [id number] Stat Exams 05/31/24 11:38 Completed CV. echo complete* [id number] Routine Ultrasound 05/31/24 16:42 Completed Radiology Impressions Chest X-Ray 05/31/24 11:38 IMPRESSION: Findings most compatible with congestive heart failure, less likely pneumonitis. Significant pleural effusions. Echocardiogram Moderately increased left ventricular cavity size. Moderately decreased left ventricular systolic function. Left ventricular ejection fraction is estimated at 40-45%. Global left ventricular hypokinesis. Grade II/IV diastolic dysfunction, Laboratory Results WBC 6.07 10^3/uL (3.29-11.43) 06/02/24 02:32 RBC 3.19 10^6/uL (3.85-5.65) L 06/02/24 02:32 Hgb 8.40 g/dL (11.27-16.99) L 06/02/24 02:32 Hct 27.8 % (36-47) L 06/02/24 02:32 MCV 87.1 fl (85-98) 06/02/24 02:32 MCH 26.3 pg (27-33) L 06/02/24 02:32 MCHC 30.2 g/dL (30-55) 06/02/24 02:32 RDW 18.0 % (12.1-15.1) H 06/02/24 02:32 Plt Count 281 10^3/cmm (157-399) 06/02/24 02:32 MPV 9.2 fL (7.4-10.4) 06/02/24 02:32 Neut % (Auto) 62.7 % 06/02/24 02:32 Lymph % (Auto) 25.4 % 06/02/24 02:32 [place] % (Auto) 9.1 % 06/02/24 02:32 Eos % (Auto) 2.0 % 06/02/24 02:32 Baso % (Auto) 0.3 % 06/02/24 02:32 Neut # (Auto) 3.81 10^3/uL (1.8-7.7) 06/02/24 02:32 Lymph # (Auto) 1.5 10^3/uL (0.8-4.8) 06/02/24 02:32 [place] # (Auto) 0.6 10^3/uL (0.2-0.9) 06/02/24 02:32 Eos # (Auto) 0.1 10^3/uL (0.0-0.8) 06/02/24 02:32 Baso # (Auto) 0.0 10^3/uL (0.0-0.1) 06/02/24 02:32 Nucleated RBC % (auto) 0 % 06/02/24 02:32 Nucleated RBCs # 0.0 /100WBC 06/02/24 02:32 Sodium 142 mmol/L (136-145) 06/02/24 02:32 Potassium 3.5 mmol/L (3.5-5.1) 06/02/24 02:32 Chloride 103 mmol/L (98-107) 06/02/24 02:32 Carbon Dioxide 29 mmol/L (22-29) 06/02/24 02:32 Anion Gap 13.5 (5-19) 06/02/24 02:32 BUN 18 mg/dL (8-23) 06/02/24 02:32 Creatinine 1.5 mg/dL (0.5-0.9) H 06/02/24 15:19 GFR Calculation Not Reportable 06/02/24 15:19 Glucose 92 mg/dL (65-115) 06/02/24 02:32 Calculated Osmolality 296 mOsm/kg (285-295) H 06/02/24 02:32 Calcium 8.5 mg/dL (8.5-10.5) 06/02/24 02:32 Magnesium 1.8 mg/dL (1.7-2.3) 06/01/24 03:35 Iron 21 ug/dL (37-145) L 06/01/24 03:35 Total Bilirubin 0.3 mg/dL (0.15-1.2) 06/02/24 02:32 AST 17 U/L (0-32) 06/02/24 02:32 ALT < 5 U/L (0-33) 06/02/24 02:32 Alkaline Phosphatase 71 U/L (35-105) 06/02/24 02:32 Troponin T Baseline 38 ng/L (0-10) H 05/31/24 12:05 Troponin T 120 Minute 34.62 ng/L (0-10) H 05/31/24 14:01 Delta Troponin T -3.38 ABS# (0-10) L 05/31/24 14:01 Troponin T Hi Sens 6Hr 40.14 ng/L (0-10) H 05/31/24 18:07 Troponin T Hi Sens 6Hr Delta 2.14 ng/L (0-12) 05/31/24 18:07 NT-Pro-B Natriuret Pep 8466 pg/mL (0-450) H 05/31/24 12:05 Total Protein 5.7 g/dL (6.6-8.7) L 06/02/24 02:32 Albumin 3.3 g/dL (3.5-5.2) L 06/02/24 02:32 Globulin 2.4 g/dL (1.3-4.6) 06/02/24 02:32 Vitamin B12 587 pg/mL (232-1245) 06/01/24 03:35 Folate 9.8 ng/mL (4.8-37.3) 06/01/24 03:35 Procalcitonin 0.11 ng/mL (0-0.5) 05/31/24 12:05 TSH 3.54 uIU/mL (0.27-4.20) 05/31/24 14:04 Urine Color Yellow (Yellow) 05/31/24 13:42 Urine Appearance Clear (CLEAR) 05/31/24 13:42 Urine pH 6 (5-7) 05/31/24 13:42 Ur Specific [place] 1.020 (1.005-1.030) 05/31/24 13:42 Urine Protein Neg (Negative) 05/31/24 13:42 Urine Glucose (UA) 4+ (Normal) H 05/31/24 13:42 Urine Ketones Negative (Negative) 05/31/24 13:42 Urine Blood Neg (Negative) 05/31/24 13:42 Urine Nitrate Negative (Negative) 05/31/24 13:42 Urine Bilirubin Neg (Negative) 05/31/24 13:42 Urine Urobilinogen Norm mg/dL (Negative) 05/31/24 13:42 Ur Leukocyte Esterase Negative (Negative) 05/31/24 13:42 Amorphous Sediment Not Reportable 05/31/24 13:42 Influenza A (PCR) Negative (Negative) 05/31/24 13:09 Influenza Type B (PCR) Negative (Negative) 05/31/24 13:09 RSV (PCR) Negative (Negative) 05/31/24 13:09 SARS-CoV-2 (PCR) Negative (Negative) 05/31/24 13:09 Vitals Last Vital Signs Temp 98.1 F 06/02/24 12:00 Pulse 79 06/02/24 16:55 Resp 22 H 06/02/24 16:55 BP 141/61 06/02/24 16:55 Pulse Ox 93 06/02/24 16:55 O2 Del Method Room Air 06/02/24 04:00 Discharge Plan Discharge Patient Disposition: Home Condition: Stable Prescriptions: New furosemide [Lasix] 20 mg tablet 20 mg PO DAILY PRN (Reason: edema) Qty: 30 0RF Continued aspirin [Adult Aspirin Regimen] 81 mg tablet,delayed release (DR/EC) 81 mg PO DAILY fluoxetine [Prozac] 40 mg capsule 40 mg PO DAILY donepezil 5 mg tablet 5 mg PO QPM ferrous sulfate 325 mg (65 mg iron) tablet 325 mg PO DAILY Eliquis 2.5 mg tablet 2.5 mg PO BID Jardiance 10 mg tablet 10 mg PO QAM buspirone 5 mg tablet 5 mg PO TID atorvastatin 80 mg tablet 80 mg PO QPM diltiazem HCl [DILT-XR] 120 mg capsule,ext.rel 24h degradable 120 mg PO DAILY Discharge Orders: Discharge Order (Routine); Ordered 06/02/24 Ordered By: Christelle Baltazar Referrals: Gonsalo Cardona M.D [Physician] - ([facility] is going to call patient. their system went down and they could not schedule her.) Vladislav Hernandez DO [Primary Care Provider] - 06/15/24 2:40 pm Patient Instructions: Anemia, Furosemide (By mouth), Heart Failure (DC), Pulmonary Edema (DC), High Troponin Levels (GEN), Opioid Safety Discharge Attestations Time Spent in Discharge Care*: greater than 30 min Quality Metrics Clinical Quality Measures [ No reported AMI, CVA or VTE this stay] Coding Level of Care Code Acute Code for [facility] Fwd Diagnoses Pulmonary edema J81.1 Elevated troponin R79.89 Anemia D64.9 Anemia type: unspecified type Congestive heart failure I50.9 Heart failure chronicity: unspecified Heart failure type: unspecified
== END 2024-06-02 19:11 | disposition home or self-care (01) | DRG 291 ==
LOC: ER 15:07 → CSU 15:32
PROVIDERS: Emergency Medicine; Admitting Provider Student in an Organized Health Care Education/Training Program; Emergency Provider Physician Assistant; PCP Family Medicine; Visit Provider Student in an Organized Health Care Education/Training Program
DX: I11.0 Hypertensive heart disease with heart failure (principal); I50.23 Acute on chronic systolic (congestive) heart failure; N17.9 Acute kidney failure, unspecified; I48.91 Unspecified atrial fibrillation; R79.89 Other specified abnormal findings of blood chemistry; Z79.01 Long term (current) use of anticoagulants; Z95.0 Presence of cardiac pacemaker; Z79.82 Long term (current) use of aspirin; F03.90 Unspecified dementia, unspecified severity, without behavioral disturbance, psychotic disturbance, mood disturbance, and anxiety; E78.5 Hyperlipidemia, unspecified; F32.A Depression, unspecified; E11.9 Type 2 diabetes mellitus without complications; Z79.84 Long term (current) use of oral hypoglycemic drugs
CPT/HCPCS: 36415; 71045; 80053; 81003; 82565; 82607; 82746; 83540; 83735; 83880; 84145; 84443; 84484; 85025; 87637; 93005; 93306; 96374; 96376; 99285; J1938; J1940; J7040; J9999

== ENCOUNTER 2024-07-12 11:37 | Emergency (ER) | payer MEDICARE, OTHER, SELFPAY ==
--- NOTE | 2024-07-12 11:38 | XR_ITS ---
WS: [id number] Exam: XR chest 1V portable [id number] Date/Time of Exam: 07/12/2024 11:38 AM Reason For Exam: sob Comparison 05/31/2024. Bibasal pleural effusions with associated compressive atelectasis of both lower lobes. Heart size within normal limits. The mediastinum is normal in contour. There is mild pulmonary vascular congestion. Bony structures are intact. A permanent cardiac pacer noted over the LEFT chest. XR/XR chest 1V portable [id number] IMPRESSION: 1. Pulmonary vascular congestion with bibasilar pleural effusions and associate d compressive atelectasis. Findings likely indicate some degree of chronic CHF. Very little change since last exam.
[2024-07-12 11:40] VITALS: BP 164/83; PULSE 95; RESP 16; TEMP 36.6; O2SAT 94; BMI 19.1
--- NOTE | 2024-07-12 11:46 | ECG_ITS ---
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1945 Requested By: Osmar Singh Order Number: [id number] Reading MD: EVELINE WIGGINS Measurements Intervals [place] Rate: 87 P: 0 GA: 0 QRS: 82 QRSD: 78 T: 78 QT: 363 QTc: 438 Interpretive Statements ATRIAL FIBRILLATION ELECTRONIC VENTRICULAR PACEMAKER -- CONTOUR ANALYSIS BASED ON INTRINSIC RHYTHM ANTEROSEPTAL MYOCARDIAL INFARCTION , OF INDETERMINATE AGE [40+ ms Q WAVE IN V1-V4] Compared to ECG 05/31/2024 21:23:54 Atrial fibrillation no longer present Myocardial infarct finding still present Electronically Signed On 07-14-2024 23:34:25 CDT by EVELINE WIGGINS [email or web address]
--- NOTE | 2024-07-12 12:07 | W.ED.SOB ---
HPI - SOB/Dyspnea General: Chief Complaint: Shortness of Breath/Dyspnea Stated Complaint: labored breathing Time Seen by Provider: 07/12/24 12:04 Source: patient Mode of arrival: ambulatory Limitations: no limitations History of Present Illness: HPI Narrative: 79-year-old female has a history of congestive heart failure diagnosed over a month ago she states she takes Lasix just as needed 20 mg states that over the last few nights she has had increasing shortness of breath when she lays flat has had some swelling in her legs she is in no distress currently she is 97% on room air denies any cough or fever or chest pain Associated symptoms: Deny abdominal pain, chest pain, fever(s), nausea or vomiting Related Data Home Medications ?Medication ?Instructions ?Recorded ?Confirmed aspirin 81 mg tablet,delayed 81 mg PO DAILY 11/26/20 07/12/24 release (Adult Aspirin Regimen) fluoxetine 40 mg capsule (Prozac) 40 mg PO DAILY 11/26/20 07/12/24 atorvastatin 80 mg tablet 80 mg PO QPM 08/25/23 07/12/24 buspirone 5 mg tablet 5 mg PO TID 08/25/23 07/12/24 apixaban 2.5 mg tablet (Eliquis) 2.5 mg PO BID 05/31/24 07/12/24 donepezil 5 mg tablet 5 mg PO QPM 05/31/24 07/12/24 empagliflozin 10 mg tablet 10 mg PO QAM 05/31/24 07/12/24 (Jardiance) ferrous sulfate 325 mg (65 mg 325 mg PO DAILY 05/31/24 07/12/24 iron) tablet diltiazem HCl 240 mg 240 mg PO DAILY 07/12/24 07/12/24 capsule,extended release 24 hr, controlled (DILT-XR) furosemide 40 mg tablet 40 mg PO DAILY 07/12/24 07/12/24 Allergies Allergy/AdvReac Type Severity Reaction Status Date / Time calcium Allergy Unknown Verified 05/31/24 17:02 metoprolol Allergy Unknown Verified 05/31/24 17:02 Review of Systems Const: Denies: fever(s), chills, body aches or change in appetite ENMT: Denies: throat pain or dental pain Card: Denies: chest pain Resp: Reports: dyspnea GI: Denies: abdominal pain, nausea, vomiting or diarrhea Musc: Denies: neck pain or back pain Skin/Breast: Denies: rash Neuro: Denies: headache(s) PFSH ED PFSH: Medical History HTN (hypertension) Depression Hyperlipidemia Pacemaker Social History Smoking and tobacco/nicotine status: never used tobacco/nicotine Alcohol intake: never Lives independently: Yes Household members: none Physical Exam Const: COMMON NORMALS: no acute distress, patient oriented x3 and healthy appearing HENMT: COMMON NORMALS: normocephalic and atraumatic HEAD & SCALP: normocephalic and atraumatic Neck/C-Spine: COMMON NORMALS: full ROM and supple Chest: COMMONS NORMALS: normal inspection of the chest and normal palpation of entire chest wall Resp: COMMON NORMALS: normal respiratory effort, No retractions, No use of accessory muscles and clear to auscultation bilaterally AUSCULTATION: clear to auscultation bilaterally Cardio: COMMON NORMALS: regular rate, regular rhythm and No murmurs present (Cardio) RATE: regular rate RHYTHM: regular rhythm Extremity: COMMON NORMALS: normal to inspection and full ROM Neuro: COMMON NORMALS: patient oriented x3, moves all extremities and no focal motor deficits Psych: COMMON NORMALS: mental status grossly normal, Normal thought process present and cooperative THOUGHT PROCESS: Normal thought process present Skin: COMMON NORMALS: no rashes or lesions noted and no wounds GENERAL SKIN EXAM: no rashes or lesions noted Course Vital Signs: Vital signs: Vital Signs Temperature 97.8 F 07/12/24 11:40 Pulse Rate 95 07/12/24 11:40 Respiratory Rate 16 07/12/24 11:40 Blood Pressure 164/83 07/12/24 11:40 Pulse Oximetry 94 07/12/24 11:40 Oxygen Delivery Me thod Room Air 07/12/24 11:40 MDM - SOB/Dyspnea Medical Decision Making Patient presents here with some dyspnea she is in no distress here she is only been taking her Lasix as needed not daily she feels much improved after IV Lasix informed her to start taking her 20 mg daily follow-up with PCP return if worsening. Medical Records I reviewed the patient's medical records. Lab Data I reviewed the patient's lab results. 07/12/24 12:03 07/12/24 12:03 Labs/Radiology: Radiology Impressions Chest X-Ray 07/12/24 11:38 IMPRESSION: 1. Pulmonary vascular congestion with bibasilar pleural effusions and associated compressive atelectasis. Findings likely indicate some degree of chronic CHF. Very little change since last exam. Laboratory Results WBC 4.58 10^3/uL (3.29-11.43) 07/12/24 12:03 RBC 3.53 10^6/uL (3.85-5.65) L 07/12/24 12:03 Hgb 9.40 g/dL (11.27-16.99) L 07/12/24 12:03 Hct 31.8 % (36-47) L 07/12/24 12:03 MCV 90.1 fl (85-98) 07/12/24 12:03 MCH 26.6 pg (27-33) L 07/12/24 12:03 MCHC 29.6 g/dL (30-55) L 07/12/24 12:03 RDW 17.0 % (12.1-15.1) H 07/12/24 12:03 Plt Count 234 10^3/cmm (157-399) 07/12/24 12:03 MPV 8.9 fL (7.4-10.4) 07/12/24 12:03 Neut % (Auto) 60.5 % 07/12/24 12:03 Lymph % (Auto) 28.4 % 07/12/24 12:03 [place] % (Auto) 8.7 % 07/12/24 12:03 Eos % (Auto) 1.1 % 07/12/24 12:03 Baso % (Auto) 0.9 % 07/12/24 12:03 Neut # (Auto) 2.77 10^3/uL (1.8-7.7) 07/12/24 12:03 Lymph # (Auto) 1.3 10^3/uL (0.8-4.8) 07/12/24 12:03 [place] # (Auto) 0.4 10^3/uL (0.2-0.9) 07/12/24 12:03 Eos # (Auto) 0.1 10^3/uL (0.0-0.8) 07/12/24 12:03 Baso # (Auto) 0.0 10^3/uL (0.0-0.1) 07/12/24 12:03 Nucleated RBC % (auto) 0 % 07/12/24 12:03 Nucleated RBCs # 0.0 /100WBC 07/12/24 12:03 PT 13.50 SECONDS (12.1-14.9) 07/12/24 12:03 INR 0.96 (0.8-1.2) 07/12/24 12:03 Sodium 143 mmol/L (136-145) 07/12/24 12:03 Potassium 3.8 mmol/L (3.5-5.1) 07/12/24 12:03 Chloride 106 mmol/L (98-107) 07/12/24 12:03 Carbon Dioxide 24 mmol/L (22-29) 07/12/24 12:03 Anion Gap 16.8 (5-19) 07/12/24 12:03 BUN 11 mg/dL (8-23) 07/12/24 12:03 Creatinine 1.0 mg/dL (0.5-0.9) H 07/12/24 12:03 GFR Calculation Not Reportable 07/12/24 12:03 Glucose 90 mg/dL (65-115) 07/12/24 12:03 Calculated Osmolality 295 mOsm/kg (285-295) 07/12/24 12:03 Calcium 9.1 mg/dL (8.5-10.5) 07/12/24 12:03 Total Bilirubin 0.3 mg/dL (0.15-1.2) 07/12/24 12:03 AST 23 U/L (0-32) 07/12/24 12:03 ALT 7 U/L (0-33) 07/12/24 12:03 Alkaline Phosphatase 80 U/L (35-105) 07/12/24 12:03 NT-Pro-B Natriuret Pep 4618 pg/mL (0-450) H 07/12/24 12:03 Total Protein 7.0 g/dL (6.6-8.7) 07/12/24 12:03 Albumin 3.9 g/dL (3.5-5.2) 07/12/24 12:03 Globulin 3.1 g/dL (1.3-4.6) 07/12/24 12:03 All radiology interpretation(s) finalized by discharge Discharge Plan Discharge Patient Disposition: Home Clinical Impression: Congestive heart failure Qualifiers: Heart failure type: unspecified Heart failure chronicity: unspecified Qualified Code(s): I50.9 - Heart failure, unspecified Condition: Stable Prescriptions: No Action aspirin [Adult Aspirin Regimen] 81 mg tablet,delayed release (DR/EC) 81 mg PO DAILY fluoxetine [Prozac] 40 mg capsule 40 mg PO DAILY donepezil 5 mg tablet 5 mg PO QPM ferrous sulfate 325 mg (65 mg iron) tablet 325 mg PO DAILY Eliquis 2.5 mg tablet 2.5 mg PO BID Jardiance 10 mg tablet 10 mg PO QAM furosemide 40 mg tablet 40 mg PO DAILY diltiazem HCl [DILT-XR] 240 mg capsule,ext.rel 24h degradable 240 mg PO DAILY buspirone 5 mg tablet 5 mg PO TID atorvastatin 80 mg tablet 80 mg PO QPM Discharge Orders: Discharge ED (Routine); Ordered 07/12/24 Ordered By: Osmar Singh Referrals: Vladislav Hernandez DO [Primary Care Provider] Discharge Diet: Advance as tolerated Discharge Activity: Resume usual activity Patient Instructions: Heart Failure (ED) Print Language: Setswana Coding Level of Care Code ED Foam Charger for Ines Harris
[2024-07-12 12:20] LABS: Basophils % 0.9 %; Eosinophils # 0.1 10^3/uL (0.0-0.8); Eosinophils % 1.1 %; Hematocrit 31.8 % (36-47); Lymphocytes # 1.3 10^3/uL (0.8-4.8); Lymphocytes % 28.4 %; Mean Corpuscular HGB Conc 29.6 g/dL (30-55); Mean Corpuscular Hemoglobin 26.6 pg (27-33); Mean Corpuscular Volume 90.1 fl (85-98); Mean Platelet Volume 8.9 fL (7.4-10.4); Monocytes # 0.4 10^3/uL (0.2-0.9); Monocytes % 8.7 %; Neutrophils # 2.77 10^3/uL (1.8-7.7); Neutrophils % 60.5 %; Nucleated Red Blood Cells % 0 %; Platelet Count 234 10^3/cmm (157-399); Red Blood Count 3.53 10^6/uL (3.85-5.65); White Blood Count 4.58 10^3/uL (3.29-11.43)
[2024-07-12] MEDS: FUROsemide 10 mg/mL SDV 10mL 60 MG IVP (12:36)
[2024-07-12] MEDS: hyDRALAzine 20 mg/mL INJ 1 mL 10 MG IVP (12:40)
[2024-07-12 12:41] LABS: INR 0.96 (0.8-1.2)
[2024-07-12 13:01] LABS: Alanine Aminotransferase 7 U/L (0-33); Albumin Level 3.9 g/dL (3.5-5.2); Alkaline Phosphatase 80 U/L (35-105); Anion Gap 16.8 (5-19); Aspartate Amino Transferase 23 U/L (0-32); Blood Urea Nitrogen 11 mg/dL (8-23); Calcium 9.1 mg/dL (8.5-10.5); Carbon Dioxide 24 mmol/L (22-29); Chloride 106 mmol/L (98-107); Creatinine Clr Calc Pharmacy 32.7404; Globulin 3.1 g/dL (1.3-4.6); Glucose 90 mg/dL (65-115); NT Pro B Type Natriuretic Pept 4618 pg/mL (0-450); Osmolality Calculated 295 mOsm/kg (285-295); Potassium 3.8 mmol/L (3.5-5.1); Sodium 143 mmol/L (136-145); Total Bilirubin 0.3 mg/dL (0.15-1.2)
[2024-07-12 13:26] VITALS: BP 166/81; PULSE 97; RESP 16; O2SAT 94
== END 2024-07-12 13:27 | disposition home or self-care (01) ==
PROVIDERS: Emergency Provider Emergency Medicine; PCP Family Medicine
DX: I11.0 Hypertensive heart disease with heart failure (principal); I50.9 Heart failure, unspecified; E78.5 Hyperlipidemia, unspecified; Z95.0 Presence of cardiac pacemaker
CPT/HCPCS: 71045; 80053; 83880; 85025; 85610; 93005; 96374; 96375; 99285; J0360; J1938